=== PATIENT | male | born 1960 | race Caucasian/White ===

== ENCOUNTER 2021-07-30 09:26 | Outpatient (REF) | payer OTHER, SELFPAY ==
[2021-07-30 10:17] LABS: Hematocrit 43.3 % (42.0-52.0); Hemoglobin 14.3 g/dl (14.0-18.0); Mean Corpuscular Volume 93.9 fL (80.0-98.0); Mean Platelet Volume 11.8 fL (9.4-12.4); Platelet Count 207 X10*3/uL (160-400); Red Blood Count 4.61 X10*6/uL (4.60-5.80); Red Cell Distribution Width 12.8 % (11.0-16.0); White Blood Count 4.4 X10*3/uL (4.8-10.8)
[2021-07-30 11:05] LABS: Alanine Aminotransferase 28 U/L (0-40); Albumin Level 4.3 g/dL (3.5-5.0); Alkaline Phosphatase 75 U/L (39-117); Anion Gap 11 (12-20); Aspartate Amino Transferase 22 U/L (5-37); Bilirubin Total 0.6 mg/dL (0.0-1.0); Blood Urea Nitrogen 21 mg/dL (9-16); Calcium 9.7 mg/dL (8.4-10.2); Carbon Dioxide 28 mmol/L (22-29); Chloride 108 mmol/L (96-108); Cholesterol 185 mg/dL; Estimated Glomerular Filt Rate > 60; Glucose Fasting 108 mg/dL (60-99); HDL Cholesterol 40 mg/dL; LDL Cholesterol Calculated 131 mg/dl; Potassium 4.8 mmol/L (3.3-5.1); Sodium 142 mmol/L (135-145); Triglycerides 71 mg/dL
[2021-07-30 11:12] LABS: TSH reflex Free T4 0.51 uIU/mL (0.32-4.0)
[2021-07-30 11:50] LABS: Prostate Specific Antigen Scr 6.04 ng/mL (<0.05-4.0)
== END 2021-07-30 09:27 | disposition home or self-care (01) ==
LOC: HO.LAB 09:26
PROVIDERS: PCP Physician Assistant; Visit Provider Physician Assistant
DX: Z12.5 Encounter for screening for malignant neoplasm of prostate (principal); Z13.1 Encounter for screening for diabetes mellitus; E78.2 Mixed hyperlipidemia; I10 Essential (primary) hypertension
CPT/HCPCS: 36415; 80053; 80061; 84153; 84443; 85027

== ENCOUNTER 2021-08-27 08:03 | Outpatient (REF) | payer OTHER, SELFPAY ==
--- NOTE | ~2021-08-27 | XR_ITS ---
EXAMINATION: XR HIP, LEFT CLINICAL INFORMATION: Left hip pain COMPARISON: None TECHNIQUE: Pelvis 2 views. Left hip 2 views. FINDINGS: Left total hip arthroplasty present. Usual position and alignment. No acute periprosthetic fracture seen. No suspicious morenita-hardware lucencies to suggest hardware failure. Right total hip arthroplasty appears intact. No evidence of hardware failure. Degeneration of the lumbar spine. No acute pelvic fractures. Surgical clips projected over the scrotum. XR/XR hip LT w PEL1V IMPRESSION: Left total hip arthroplasty. No radiographic evidence of acute periprosthetic fracture or hardware failure. Right hip arthroplasty. No acute findings or evidence of hardware failure.
== END 2021-08-27 08:04 | disposition home or self-care (01) ==
LOC: HO.HOSX 08:03
PROVIDERS: Visit Provider Physician Assistant
DX: G89.29 Other chronic pain (principal); M25.552 Pain in left hip; Z98.890 Other specified postprocedural states
CPT/HCPCS: 73502

== ENCOUNTER → 2021-09-17 09:18 | Outpatient (BNVA) | payer OTHER, SELFPAY | PROVIDERS: PCP Physician Assistant; Visit Provider Internal Medicine | DX: G57.92 Unspecified mononeuropathy of left lower limb (principal); Z79.899 Other long term (current) drug therapy; Z96.643 Presence of artificial hip joint, bilateral; Z96.653 Presence of artificial knee joint, bilateral; Z87.891 Personal history of nicotine dependence | CPT/HCPCS: 99202 ==

== ENCOUNTER 2021-11-07 05:55 | Outpatient (REF) | payer OTHER, SELFPAY | END 2021-11-07 05:56 | disposition home or self-care (01) | LOC: HO.RADIR 05:55 | PROVIDERS: Visit Provider Internal Medicine | DX: G57.92 Unspecified mononeuropathy of left lower limb (principal) | CPT/HCPCS: 64425; J2795 ==

== ENCOUNTER 2023-11-05 10:12 | Outpatient (AMB) | payer OTHER, SELFPAY ==
--- NOTE | 2023-11-05 10:20 | MHC.PC.OV ---
Vital Signs 11/05/23 10:26 11/05/23 10:54 Height 5 ft 11 in Weight 238 lb BMI 33.2 BP 166/86 H 155/80 H Blood Pressure Location Lt brachial Position Sitting Pulse 75 Pulse Source Pulse Oximeter Pulse Oximetry (%) 95 Oxygen Delivery Method Room Air Intake Visit Reasons: PE/Pre-Op right knee Dr. Dugan at [facility] Intake Note: Patient is here today for a physical and Pre-Op clearance for the right knee surgery scheduled with Dr. Dugan at [facility]. Client Relations Associate Required: No Accompanied by: Self / Same As Patient Allergies No Known Allergies Allergy (Verified 11/05/23 10:37) Medication List - Last Reconciled 11/05/23 by Ayden Reid PA-C celecoxib 200 mg PO BID 90 days gabapentin 800 mg PO Q12H glucosamine HCl 500 mg PO DAILY omega-3 fatty acids (Fish Oil Concentrate) 1,000 mg PO BID omeprazole 20 mg PO DAILY pravastatin 10 mg PO DAILY Tobacco use date assessed: 11/05/23 Dental Screening Dental Screen Date: 11/05/23 Did you have a dental visit in the last 12 months?: No Did you have a dental problem in the last 6 months where you did not have access to dental care?: No Was dental information given to patient?: Patient has dentist HPI PE/Pre-Op right knee Dr. Dugan at [facility] HPI Details Patient is a 61-year-old male here today for a routine annual physical and preop visit. Patient's past medical history significant for prostate cancer( status post total prostatectomy), hypertension, osteoarthritis bilateral hips, hyperlipidemia and obesity. Unfortunately did have a work-related injury due to a fall fracturing his right patella. Patient is due for right knee cap surgery with Dr. Dugan. Patient has no past medical history significant for Congestive heart failure, mi or CVA. Patient not on any anticoagulation or antiplatelet therapy at this time. Has gotten a preop to [facility] reports labs and EKG were stable. Hypertension: Blood pressure remains elevated today in office, he reports he has been under lot of stress at work. He does at time check his blood pressure at home reports normal readings. He otherwise denies any chest discomfort, shortness of breath, dizziness or headaches. He is not interested in starting blood pressure medication at this time and will continue to monitor blood pressure at home and will call back if blood pressures remain above 140/90 .. Hyperlipidemia: Has not gotten labs in quite some time, continues on daily use of pravastatin 10 mg. Advised to do fasting lipids to evaluate total cholesterol and LDL. Colon cancer screening: last colon done done 2018- Dr meyer - negative- repeat 10 years Vaccines: Up-to-date with tetanus vaccine, pneumonia vaccine, COVID vaccines, Considering Shingles vaccine. [facility] Medical History Ilioinguinal neuralgia of left side Osteoarthritis, hip, bilateral Surgical History History of cholecystectomy History of prostate surgery History of hip surgery Hx of right knee surgery History of ankle fusion History of knee replacement procedure of right knee History of arthroscopy of right knee Deficient knowledge of leg surgery Family History Father Advanced cardiac disease Mother Bone cancer Sister Breast cancer Multiple sclerosis Son In good health Daughter In good health Social History Housing: House Alcohol intake: current Alcohol intake frequency: a few times a month Alcohol type: beer Patient Tobacco Use Status: Former Tobacco user Quit Date: 2017 Tobacco use type: Cigarette e-Cigarette/Vaping Use: Never Used Second Hand Smoke Exposure: No service: No Current occupational status: employed Current occupational exposures/hazards: No Cognitive needs: No Hearing needs: No Vision needs: Yes Questionnaire PHQ-9 Over the last 2 weeks, how often have you been bothered by any of the following problems? 1. Little interest or pleasure in doing things: not at all 2. Feeling down, depressed, or hopeless: not at all 3. Trouble falling or staying asleep, or sleeping too much: not at all 4. Feeling tired or having little energy: not at all 5. Poor appetite or overeating: not at all 6. Feeling bad about yourself - or that you are a failure or have let yourself or your family down: not at all 7. Trouble concentrating on things, such as reading the newspaper or watching television: not at all 8. Moving or speaking so slowly that other people could have noticed. Or the opposite - being so fidgety or restless that you have been moving around a lot more than usual: not at all 9. Thoughts that you would be better off or of hurting yourself in some way: not at all Total score: 0 Depression Screening Interpretation: Negative Depression Screening Done: Yes 87522 - PHQ-9 Billing: Yes Source: Developed by Drs. Albert Jamison, Fernanda Silveira, Reese Hall and colleagues, with an educational sean from [employer]. Thrive Questionnaire Date Thrive assessed: 11/05/23 I am a: Patient What is your living situation today?: I have a steady place to live Within the past 12 months, did the food you bought not last and you didn't have the money to get more?: Never true Within the past 12 months, did you worry whether your food would run out before you got money to buy more?: Never true Do you have trouble paying for medicines?: No Do you have trouble getting transportation to medical appointments?: No Do you have trouble paying your heating and electricity bill?: No Do you have trouble taking care of your child, family member or friend?: No Do you have trouble with day-to-day activities such as bathing, preparing meals, shopping, managing finances, etc.?: No Are you currently unemployed and looking for a job?: No Are you interested in more education?: No Please select the resources that you would like help with: None Currently or been in a relationship where the following occur: no concerns reported THRIVE Score: 0 AUDIT C Alcohol Use Questionnaire (AUDIT-C) 1. How often do you have a drink containing alcohol?: Monthly or less 2. How many drinks containing alcohol do you have on a typical day when you are drinking?: 1 or 2 3. How often do you have six or more drinks on one occasion?: Never Total Score: 1 ROOSEVELT-7 AMB Questionnaire ROOSEVELT-7 Date ROOSEVELT - 7 assessed: 11/05/23 Feeling nervous, anxious, or on edge: 0 = Not at all Not being able to stop or control worryin = Not at all Worrying too much about different things: 0 = Not at all Trouble relaxin = Not at all Being so restless that it is hard to sit still: 0 = Not at all Becoming easily annoyed or irritable: 0 = Not at all Feeling afraid as if something awful might happen: 0 = Not at all Total ROOSEVELT-7 score (0-4 normal; 5-9 mild; 10-14 moderate; 15-21 severe): 0 Source: Developed by Drs. Albert Jamison, Fernanda Silveira, Reese Hall and colleagues, with an educational sean from [employer]. ROOSEVELT-7 Assessment Billing ROOSEVELT-7 Assessment Tool: ROOSEVELT-7 Assessment 58517 Review of Systems Const Denies body aches, Denies chills, Denies excessive sweating, Denies fatigue, Denies fever(s) and Denies headache(s) Eyes Denies blurry vision ENT Denies dysphagia, Denies vertigo, Denies dizziness, Denies headache(s), Denies hearing loss and Denies tinnitus Card Denies chest pain, Denies chest pain with activity, Denies syncope, Denies irregular heart rhythm and Denies dyspnea Resp Denies chest congestion, Denies cough, Denies hemoptysis, Denies dyspnea and Denies wheezing GI Denies abdominal pain, Denies melena, Denies hematochezia, Denies coffee ground emesis, Denies dysphagia, Denies diarrhea, Denies nausea and Denies vomiting Denies difficulty urinating, Denies dysuria, Denies urinary frequency, Denies urinary hesitancy and Denies urinary urgency Musc Denies arthralgias, Denies limited range of motion, Denies muscle cramps and Denies muscle weakness Skin/Breast Denies rash and Denies skin ulcer Neuro Denies Abnormal speech present, Denies confusion, Denies vertigo, Denies dizziness, Denies syncope, Denies headache(s), Denies memory loss and Denies seizure-like activity Psych Denies anxiety, Denies confusion, Denies depression, Denies memory loss, Denies panic attacks and Denies paranoia Endo Denies excessive sweating, Denies fatigue, Denies flushing, Denies polydipsia and Denies polyuria Aller/Immun Denies wheezing Physical exam (Primary Care) Vital Signs: Last Vital Signs Pulse 75 11/05/23 10:26 BP 166/86 H 11/05/23 10:26 Pulse Ox 95 11/05/23 10:26 Oxygen Delivery Method Room Air 11/05/23 10:26 BMI result Body Mass Index 33.2 Tobacco/Smoking Status: Tobacco use Status Tobacco use date assessed 11/05/23 11/05/23 10:31 Patient Tobacco Use Status Former Tobacco user 11/05/23 10:22 Tobacco use type Cigarette 11/05/23 10:22 e-Cigarette/Vaping Use Never Used 11/05/23 10:22 PHQ-9: PHQ-9 Score PHQ-9: Total score 0 11/05/23 10:31 Depression Screening Interpretation: Negative Thrive Assessment: Date of Thrive Assessment Date Thrive assessed 11/05/23 11/05/23 10:31 Currently or been in a relationship where the following occur: no concerns reported Const General: cooperative, comfortable, no acute distress, alert and awake; No confusion Orientation/consciousness: oriented to person, oriented to place, patient oriented x3 and No confusion HENMT Head: Yes normocephalic Ears: external ears normal and TM's normal bilaterally Face and sinus: No sinus tenderness Mouth: Normal oral and palatal mucosa present and tongue normal Teeth and gingiva: dentition normal and gingiva normal Throat: Yes posterior oropharynx normal, Yes tonsils normal and Yes uvula midline Eyes Conjunctivae: conjunctivae normal Sclerae: sclerae normal Pupils: Equal, round and reactive pupils present EOM: EOMs intact bilaterally Direct Ophthalmoscopy: No no photophobia Neck Neck: Yes no lymphadenopathy, No tender and Yes no JVD Thyroid: Thyroid normal Carotids: no bruits Chest Chest palpation & inspection: no tenderness Resp Effort & Inspection: normal respiratory effort, no audible wheezes, not labored and no stridor Auscultation: no crackles, no rales, no rhonchi and no wheezes Cardio Jugular venous distension: no JVD Rate: regular rate, not bradycardic and not tachycardic Rhythm: regular rhythm Bruits: no carotid bruits Peripheral pulses: Peripheral pulses 2+ throughout GI Inspection: Yes normal to inspection, No abdominal wall ecchymosis and No visible herniation Palpation (GI): Soft to palpation, nontender, no guarding, not rigid and No hepatosplenomegaly present Auscultation: normoactive bowel sounds General: Yes no CVA tenderness Back/Spine/Pelvis Back: no CVA tenderness and No back tenderness Cervical Spine: cervical ROM normal Thoracic/Lumbar Spine: thoracic and lumbar spine normal to inspection, straight leg raise negative bilaterally, No thoraco-lumbar ROM limited and No lumbar spinal tenderness Skin Lesions: no lesions Rashes: no rashes Wounds: no wounds Neuro General: oriented to person, oriented to place, patient oriented x3, CN's II-XI intact bilaterally and No confusion Cranial nerves: Yes Equal, round and reactive pupils present and Yes Normal accommodation reflex present Cognition (Neuro): normal cognition Speech: No Abnormal speech present Gait exam (Neuro): Normal gait present Motor exam (neuro): 5/5 motor strength present throughout Extrem Right upper extremity: full ROM; no cyanosis Left upper extremity: full ROM; no cyanosis Right lower extremity: no edema Left lower extremity: no edema Psych Appearance: grossly normal Mental Status: mental status grossly normal Affect: normal affect Attitude: cooperative Thought process: Normal thought process present Assessment and Plan Assessment & Plan (1) Annual physical exam: Code(s): Z00.00 - Encounter for general adult medical examination without abnormal findings (2) HLD (hyperlipidemia): Code(s): E78.5 - Hyperlipidemia, unspecified Qualifiers: Hyperlipidemia type: mixed hyperlipidemia Qualified Code(s): E78.2 - Mixed hyperlipidemia Plan: Patient continues on statin therapy without side effect. He has not gotten labs in quite some time and promises to do fasting labs to evaluate total cholesterol and LDL. Goal LDL to be below 130 (3) High blood pressure: Code(s): I10 - Essential (primary) hypertension Qualifiers: Hypertension type: primary hypertension Qualified Code(s): I10 - Essential (primary) hypertension Plan: Blood pressure noted to be elevated today in office, he attributes this to being somewhat stressed out due to being worker's comp due to recent knee injury. He is due for surgery. Has been a lot of pain as well.. He will continue to monitor at home. I advised on starting blood pressure medication though patient declines and would like to work on lifestyle modifications to reduce his blood pressure. Goal blood pressure to be below 140/90 (4) Obese: Code(s): E66.9 - Obesity, unspecified Qualifiers: Obesity type: due to excess calories Obesity classification: adult class 1 (BMI 30 - 34.9) Serious obesity comorbidity presence: without serious comorbidity Body mass index: BMI 32.0-32.9 Qualified Code(s): E66.09 - Other obesity due to excess calories; Z68.32 - Body mass index [BMI] 32.0-32.9, adult Plan: Patient does understand his BMI is over 30 will work on being more physically active and adapting to better eating habits to reduce his weight (5) Right patella fracture: Code(s): S82.001A - Unspecified fracture of right patella, initial encounter for closed fracture Qualifiers: Encounter type: sequela Fracture type: closed Fracture morphology: unspecified fracture morphology Fracture alignment: displaced Qualified Code(s): S82.001S - Unspecified fracture of right patella, sequela Plan: As above patient is due for right patellar surgery. (6) Stress incontinence, male: Code(s): N39.3 - Stress incontinence (female) (male) Plan: Having stress incontinence ever since his prostatectomy surgery. He is interested in pelvic floor therapy. (7) Prostate cancer: Code(s): C61 - Malignant neoplasm of prostate Plan: Is status post prostatectomy. Cancer seems to be in remission. Continues to follow urology. PSAs are followed. He has unfortunately been dealing with stress incontinence in his interested in pelvic floor therapy. Orders: Orders PT Evaluation and Treatment Today N39.3 - Stress incontinence (female) (male) Lipid Panel Today E78.2 - Mixed hyperlipidemia Complete Blood Count no Diff Today E78.2 - Mixed hyperlipidemia Comprehensive Gardner. Panel Fast Today E78.2 - Mixed hyperlipidemia Microalbumin, Random (w Creat) Today R03.0 - Elevated blood-pressure reading, without diagnosis of hypertension Patient Instructions: Goal: Monitor blood pressure, blood pressures remain below 140/90 Barriers: Adherence do physical activity and healthy eating habits. Coding Level of Care Code Est Pt Prev Care 40-64y(70681) Diagnoses Annual physical exam Z00.00 Mixed hyperlipidemia E78.2 Hyperlipidemia type: mixed hyperlipidemia Primary hypertension I10 Hypertension type: primary hypertension Class 1 obesity due to excess calories without serious comorbidity with body mass index (BMI) of 32.0 to 32.9 in adult E66.09; Z68.32 Obesity type: due to excess calories Obesity classification: adult class 1 (BMI 30 - 34.9) Serious obesity comorbidity presence: without serious comorbidity Body mass index: BMI 32.0-32.9 Closed displaced fracture of right patella, unspecified fracture morphology, sequela S82.001S Encounter type: sequela Fracture type: closed Fracture morphology: unspecified fracture morphology Fracture alignment: displaced Stress incontinence, male N39.3 Prostate cancer C61 Additional Codes ROOSEVELT-7 Assessment Billing - ROOSEVELT-7 Assessment Tool: ROOSEVELT-7 Assessment 11751 ([id number])
[2023-11-05 10:26] VITALS: BP 166/86; PULSE 75; O2SAT 95; BMI 33.2
[2023-11-05 10:54] VITALS: BP 155/80
== END 2023-11-05 11:01 | disposition home or self-care (01) ==
PROVIDERS: PCP Physician Assistant; Visit Provider Physician Assistant
DX: Z00.00 Encounter for general adult medical examination without abnormal findings (principal); C61 Malignant neoplasm of prostate; E66.09 Other obesity due to excess calories; Z68.32 Body mass index [BMI] 32.0-32.9, adult; E78.2 Mixed hyperlipidemia; I10 Essential (primary) hypertension; S82.001S Unspecified fracture of right patella, sequela; N39.3 Stress incontinence (female) (male)
CPT/HCPCS: 99396

== ENCOUNTER 2024-02-05 09:36 | Outpatient (AMB) | payer OTHER, SELFPAY ==
--- NOTE | 2024-02-05 09:47 | MHC.PC.OV ---
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 Accompanied by: Self / Same As Patient Allergies No Known Allergies Allergy (Verified 02/05/24 10:21) Medication List - Last Reconciled 02/05/24 by Ayden Reid PA-C celecoxib 200 mg PO BID 90 days gabapentin 800 mg PO Q12H glucosamine HCl 500 mg PO DAILY omega-3 fatty acids (Fish Oil Concentrate) 1,000 mg PO BID omeprazole 20 mg PO DAILY pravastatin 10 mg PO DAILY Tobacco use date assessed: 11/05/23 Fall risk assessment: No Falls in past year Last assessed Fall Risk: 02/05/24 Dental Screening Dental Screen Date: 11/05/23 HPI f/u HTN HPI Details Patient is a 63-year-old male here today for a follow-up. Patient's past medical history significant for prostate cancer( status post total prostatectomy), hypertension, osteoarthritis bilateral hips, hyperlipidemia and obesity. Hypertension: Blood pressure remains elevated today in office, he reports he has been under lot of stress and continues to be in pain due to his knee issue.. He does at time check his blood pressure at home reports normal readings. He otherwise denies any chest discomfort, shortness of breath, dizziness or headaches. He is not interested in starting blood pressure medication at this time and will continue to monitor blood pressure at home and will call back if blood pressures remain above 140/90 .. Hyperlipidemia: Has not gotten labs in quite some time, continues on daily use of pravastatin 10 mg. Advised to do fasting lipids to evaluate total cholesterol and LDL. [facility] Medical History Ilioinguinal neuralgia of left side Osteoarthritis, hip, bilateral Surgical History History of cholecystectomy History of prostate surgery History of hip surgery Hx of right knee surgery History of ankle fusion History of knee replacement procedure of right knee History of arthroscopy of right knee Deficient knowledge of leg surgery Family History Father Advanced cardiac disease Mother Bone cancer Sister Breast cancer Multiple sclerosis Son In good health Daughter In good health Social History Housing: House Alcohol intake: current Alcohol intake frequency: a few times a month Alcohol type: beer Patient Tobacco Use Status: Former Tobacco user Tobacco use type: Cigarette e-Cigarette/Vaping Use: Never Used Second Hand Smoke Exposure: No service: No Current occupational status: employed Current occupational exposures/hazards: No Cognitive needs: No Hearing needs: No Vision needs: Yes Questionnaire Thrive Questionnaire Date Thrive assessed: 11/05/23 ROOSEVELT-7 AMB Questionnaire ROOSEVELT-7 Date ROOSEVELT - 7 assessed: 11/05/23 Source: Developed by Drs. Albert Jamison, Fernanda Silveira, Reese Hall and colleagues, with an educational sean from [employer]. Review of Systems Const Denies headache(s) Eyes Denies loss of vision ENT Denies vertigo, Denies dizziness, Denies headache(s) and Denies sore throat Card Denies chest pain, Denies leg edema and Denies lightheadedness Resp Denies cough, Denies hemoptysis and Denies wheezing GI Denies abdominal pain, Denies melena, Denies constipation, Denies diarrhea and Denies vomiting Denies dysuria, Denies urinary frequency and Denies urinary urgency Musc Denies arthralgias, Denies joint swelling, Denies numbness and Denies tingling Neuro Denies Abnormal speech present, Denies behavioral changes, Denies vertigo, Denies dizziness, Denies headache(s), Denies loss of vision, Denies memory loss, Denies numbness and Denies tingling Psych Denies anxiety, Denies behavioral changes, Denies depression, Denies memory loss and Denies panic attacks John/Lymph Denies easy bleeding and Denies easy bruising Aller/Immun Denies wheezing Physical exam (Primary Care) Vital Signs: Last Vital Signs Pulse 80 02/05/24 09:50 BP 182/100 H 02/05/24 09:50 Pulse Ox 95 02/05/24 09:50 Oxygen Delivery Method Room Air 02/05/24 09:50 BMI result Body Mass Index 33.2 Tobacco/Smoking Status: Tobacco use Status Tobacco use date assessed 11/05/23 02/05/24 09:48 Patient Tobacco Use Status Former Tobacco user 02/05/24 09:48 Tobacco use type Cigarette 02/05/24 09:48 e-Cigarette/Vaping Use Never Used 02/05/24 09:48 Thrive Assessment: Date of Thrive Assessment Date Thrive assessed 11/05/23 02/05/24 09:48 Const General: healthy appearing, no acute distress, alert and awake Nutritional Appearance: well nourished Orientation/consciousness: oriented to person, oriented to place and oriented to time HENMT Ears: TM's normal bilaterally General nose exam: Normal nasal mucous membranes and turbinates present Eyes Conjunctivae: conjunctivae normal Sclerae: sclerae normal Pupils: Equal, round and reactive pupils present Neck Neck: Yes no lymphadenopathy and Yes no JVD Thyroid: Thyroid normal Carotids: no bruits Resp Effort & Inspection: normal respiratory effort and not tachypneic Auscultation: no crackles, no rales, no rhonchi and no wheezes Cardio Rate: regular rate Rhythm: regular rhythm Heart sounds: no murmurs and normal S1 and S2 GI Palpation (GI): Soft to palpation, nontender, no hepatomegaly and no splenomegaly Auscultation: normal bowel sounds Skin General skin exam: no rashes or lesions noted and dry skin Neuro General: oriented to person, oriented to place and oriented to time Cranial nerves: Yes Equal, round and reactive pupils present Speech: No Abnormal speech present Gait exam (Neuro): Normal gait present Motor exam (neuro): no tremor noted Extrem Right upper extremity: full ROM Left upper extremity: full ROM Right lower extremity: full ROM; no edema Left lower extremity: full ROM; no edema Psych Mental Status: mental status grossly normal Speech and movement: Normal speech and movement present Affect: normal affect Attitude: cooperative Thought process: Normal thought process present Assessment and Plan Assessment & Plan (1) HLD (hyperlipidemia): Code(s): E78.5 - Hyperlipidemia, unspecified Qualifiers: Hyperlipidemia type: mixed hyperlipidemia Qualified Code(s): E78.2 - Mixed hyperlipidemia Plan: Patient continues on statin therapy without side effect. He has not gotten labs in quite some time and promises to do fasting labs to evaluate total cholesterol and LDL. Goal LDL to be below 130 (2) High blood pressure: Code(s): I10 - Essential (primary) hypertension Qualifiers: Hypertension type: primary hypertension Qualified Code(s): I10 - Essential (primary) hypertension Plan: Blood pressure noted to be elevated today in office, he attributes this to being somewhat stressed out due to being worker's comp due to recent knee injury. He has underwent surgery for his knee cap fracture.. Has been a lot of pain as well.. He will continue to monitor at home. I advised on starting blood pressure medication though patient declines and would like to work on lifestyle modifications to reduce his blood pressure. Goal blood pressure to be below 140/90 (3) Obese: Code(s): E66.9 - Obesity, unspecified Qualifiers: Body mass index: BMI 32.0-32.9 Obesity classification: adult class 1 (BMI 30 - 34.9) Obesity type: due to excess calories Serious obesity comorbidity presence: without serious comorbidity Qualified Code(s): E66.09 - Other obesity due to excess calories; Z68.32 - Body mass index [BMI] 32.0-32.9, adult Plan: Patient does understand his BMI is over 30 will work on being more physically active and adapting to better eating habits to reduce his weight (4) Right patella fracture: Code(s): S82.001A - Unspecified fracture of right patella, initial encounter for closed fracture Qualifiers: Encounter type: sequela Fracture alignment: displaced Fracture morphology: unspecified fracture morphology Fracture type: closed Qualified Code(s): S82.001S - Unspecified fracture of right patella, sequela Plan: He is status post right patellar surgery. Now in physical therapy. Still has some pretty significant pain. Will supply patient with short term low-dose script of oxycodone for pain control particularly before PT sessions. (5) Stress incontinence, male: Code(s): N39.3 - Stress incontinence (female) (male) Plan: Having stress incontinence ever since his prostatectomy surgery due to prostate cancer. Has followed up with Urology and will be considering bladder sling surgery to help with urinary incontinence. Medications: New oxycodone-acetaminophen 5-325 mg (Percocet) Partial Fill upon patient request. 1 tab PO BID PRN 14 tabs 0RF pain 7 days S82.001S - Unspecified fracture of right patella, sequela Refilled celecoxib 200 mg PO BID 180 caps 1RF 90 days M16.0 - Bilateral primary osteoarthritis of hip gabapentin 800 mg PO Q12H 180 tabs 1RF omeprazole 20 mg PO DAILY 90 caps 1RF pravastatin 10 mg PO DAILY 90 tabs 1RF Patient Instructions: Goal: Blood pressure to be below 140/90 Barrier: Pain control, adherence to physical activity and healthy eating habits Coding Level of Care Code Est Pt Level 4 (20882) Diagnoses Mixed hyperlipidemia E78.2 Hyperlipidemia type: mixed hyperlipidemia Primary hypertension I10 Hypertension type: primary hypertension Class 1 obesity due to excess calories without serious comorbidity with body mass index (BMI) of 32.0 to 32.9 in adult E66.09; Z68.32 Body mass index: BMI 32.0-32.9 Obesity classification: adult class 1 (BMI 30 - 34.9) Obesity type: due to excess calories Serious obesity comorbidity presence: without serious comorbidity Closed displaced fracture of right patella, unspecified fracture morphology, sequela S82.001S Encounter type: sequela Fracture alignment: displaced Fracture morphology: unspecified fracture morphology Fracture type: closed Stress incontinence, male N39.3
[2024-02-05 09:50] VITALS: BP 182/100; PULSE 80; O2SAT 95; BMI 33.2
== END 2024-02-05 10:51 | disposition home or self-care (01) ==
PROVIDERS: PCP Physician Assistant; Visit Provider Physician Assistant
DX: E78.2 Mixed hyperlipidemia (principal); I10 Essential (primary) hypertension; E66.09 Other obesity due to excess calories; Z68.32 Body mass index [BMI] 32.0-32.9, adult; S82.001S Unspecified fracture of right patella, sequela; N39.3 Stress incontinence (female) (male)
CPT/HCPCS: 99214

== ENCOUNTER 2024-05-10 09:48 | Outpatient (AMB) | payer OTHER, SELFPAY ==
[2024-05-10 10:01] VITALS: BP 156/100; PULSE 73; O2SAT 93; BMI 33.5
--- NOTE | 2024-05-10 10:01 | A.OFFPC_ITS ---
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 Accompanied by: Self / Same As Patient Allergies No Known Allergies Allergy (Verified 05/10/24 10:23) Medication List - Last Reconciled 05/10/24 by Ayden Reid PA-C celecoxib 200 mg PO BID 90 days gabapentin 800 mg PO Q12H glucosamine HCl 500 mg PO DAILY omega-3 fatty acids (Fish Oil Concentrate) 1,000 mg PO BID omeprazole 20 mg PO DAILY oxycodone-acetaminophen 5-325 mg (Percocet) 1 tab PO BID PRN 7 days pravastatin 10 mg PO DAILY Tobacco use date assessed: 11/05/23 Fall risk assessment: No Falls in past year Last assessed Fall Risk: 05/10/24 Dental Screening Dental Screen Date: 11/05/23 HPI f/u HTN- pain management 2 HPI0 Details Patient is a 63-year-old male here today for a follow-up. Patient's past medical history significant for prostate cancer( status post total prostatectomy), hypertension, osteoarthritis bilateral hips, hyperlipidemia and obesity. CONTINUES TO BE ON WORKER'S COMP DUE TO HIS RIGHT KNEE ISSUE. UNFORTUNATELY HAS BEEN LET GO FROM HIS JOB AND HAS HAVING A LOT OF ANXIETY ABOUT THIS. NOT INTERESTED IN MENTAL HEALTH THERAPY OR ANXIETY MEDICATION AT THIS TIME THOUGH WILL KEEP IT IN MIND. Right knee patellar fracture: Continues to follow orthopedics in [place]. He is wearing a knee brace at this time. Continues with physical therapy. Does use oxycodone 5 mg as needed for pain scales 8-10. Otherwise continues with Celebrex Hypertension: Blood pressure remains elevated today in office, he reports he has been under lot of stress and continues to be in pain due to his knee issue.. He does at time check his blood pressure at home reports higher readings as well. He otherwise denies any chest discomfort, shortness of breath, dizziness or headaches. PLAN: Will start lisinopril 5 mg and will continue to monitor blood pressure with goal blood pressure to be below 140/90 .. Hyperlipidemia: Has not gotten labs in quite some time, continues on daily use of pravastatin 10 mg. Advised to do fasting lipids to evaluate total cholesterol and LDL .. [facility] Medical History Ilioinguinal neuralgia of left side Osteoarthritis, hip, bilateral Surgical History History of cholecystectomy History of prostate surgery History of hip surgery Hx of right knee surgery History of ankle fusion History of knee replacement procedure of right knee History of arthroscopy of right knee Deficient knowledge of leg surgery Family History Father Advanced cardiac disease Mother Bone cancer Sister Breast cancer Multiple sclerosis Son In good health Daughter In good health Social History Housing: House Alcohol intake: current Alcohol intake frequency: a few times a month Alcohol type: beer Patient Tobacco Use Status: Former Tobacco user Tobacco use type: Cigarette e-Cigarette/Vaping Use: Never Used Second Hand Smoke Exposure: No service: No Current occupational status: employed Current occupational exposures/hazards: No Cognitive needs: No Hearing needs: No Vision needs: Yes Questionnaire Thrive Questionnaire Date Thrive assessed: 11/05/23 ROOSEVELT-7 AMB Questionnaire ROOSEVELT-7 Date ROOSEVELT - 7 assessed: 11/05/23 Source: Developed by Drs. Albert Jamison, Fernanda Silveira, Reese Hall and colleagues, with an educational sean from [employer]. Review of Systems Const Denies headache(s) Eyes Denies loss of vision ENT Denies vertigo, Denies dizziness, Denies headache(s) and Denies sore throat Card Denies chest pain, Denies leg edema and Denies lightheadedness Resp Denies cough, Denies hemoptysis and Denies wheezing GI Denies abdominal pain, Denies melena, Denies constipation, Denies diarrhea and Denies vomiting Denies dysuria, Denies urinary frequency and Denies urinary urgency Musc Denies arthralgias, Denies joint swelling, Denies numbness and Denies tingling Neuro Denies Abnormal speech present, Denies behavioral changes, Denies vertigo, Denies dizziness, Denies headache(s), Denies loss of vision, Denies memory loss, Denies numbness and Denies tingling Psych Denies anxiety, Denies behavioral changes, Denies depression, Denies memory loss and Denies panic attacks John/Lymph Denies easy bleeding and Denies easy bruising Aller/Immun Denies wheezing Physical exam (Primary Care) Vital Signs: Last Vital Signs Pulse 73 05/10/24 10:01 BP 156/100 H 05/10/24 10:01 Pulse Ox 93 05/10/24 10:01 Oxygen Delivery Method Room Air 05/10/24 10:01 BMI result Body Mass Index 33.5 Tobacco/Smoking Status: Tobacco use Status Tobacco use date assessed 11/05/23 05/10/24 10:01 Patient Tobacco Use Status Former Tobacco user 05/10/24 10:01 Tobacco use type Cigarette 05/10/24 10:01 e-Cigarette/Vaping Use Never Used 05/10/24 10:01 Thrive Assessment: Date of Thrive Assessment Date Thrive assessed 11/05/23 05/10/24 10:01 Const General: healthy appearing, no acute distress, alert and awake Nutritional Appearance: well nourished Orientation/consciousness: oriented to person, oriented to place and oriented to time HENMT Ears: TM's normal bilaterally General nose exam: Normal nasal mucous membranes and turbinates present Eyes Conjunctivae: conjunctivae normal Sclerae: sclerae normal Pupils: Equal, round and reactive pupils present Neck Neck: Yes no lymphadenopathy and Yes no JVD Thyroid: Thyroid normal Carotids: no bruits Resp Effort & Inspection: normal respiratory effort and not tachypneic Auscultation: no crackles, no rales, no rhonchi and no wheezes Cardio Rate: regular rate Rhythm: regular rhythm Heart sounds: no murmurs and normal S1 and S2 GI Palpation (GI): Soft to palpation, nontender, no hepatomegaly and no splenomegaly Auscultation: normal bowel sounds Skin General skin exam: no rashes or lesions noted and dry skin Neuro General: oriented to person, oriented to place and oriented to time Cranial nerves: Yes Equal, round and reactive pupils present Speech: No Abnormal speech present Gait exam (Neuro): Normal gait present Motor exam (neuro): no tremor noted Extrem Right upper extremity: full ROM Left upper extremity: full ROM Right lower extremity: full ROM; no edema Left lower extremity: full ROM; no edema Knee images: 2 1. WEARING SUPPORTIVE BRACE Psych Mental Status: mental status grossly normal Speech and movement: Normal speech and movement present Affect: normal affect Attitude: cooperative Thought process: Normal thought process present Office Procedures Flu Questionnaire Does the patient have a severe egg allergy?: No Immunizations Fluarix Triv [id number] (PF) 45 mcg (15 mcg x 3)/0.5 mL IM syringe Performing Provider: Ayden Reid PA-C [place] [facility] [place] [facility] Documented (not given) by: YANET Monreal on 05/10/24 10:15 Reason Not Given: Patient Refused Coding Level of Care Code Est Pt Level 4 (87619) Diagnoses Primary hypertension I10 Hypertension type: primary hypertension Prostate cancer C61 Closed displaced fracture of right patella, unspecified fracture morphology, sequela S82.001S Encounter type: sequela Fracture alignment: displaced Fracture morphology: unspecified fracture morphology Fracture type: closed Assessment & Plan Assessment & Plan (1) High blood pressure: Code(s): I10 - Essential (primary) hypertension Category: Medical Qualifiers: Hypertension type: primary hypertension Qualified Code(s): I10 - Essential (primary) hypertension Plan: Patient continues to have high blood pressure. He is now willing to start blood pressure medication. Will start lisinopril 5 mg and advised to monitor blood pressure with goal blood pressure be below 140/90 (2) Prostate cancer: Code(s): C61 - Malignant neoplasm of prostate Category: Medical Plan: Patient continues to follow urology. He did have a urinary bladder sling placed in has been recovering well. He reports no urinary issues at this time. (3) Right patella fracture: Code(s): S82.001A - Unspecified fracture of right patella, initial encounter for closed fracture Category: Medical Qualifiers: Encounter type: sequela Fracture alignment: displaced Fracture morphology: unspecified fracture morphology Fracture type: closed Qualified Code(s): S82.001S - Unspecified fracture of right patella, sequela Plan: Continues to follow Orthopedics. Has been physical therapy. Does wear a right knee brace for stabilization. He still has pretty significant pain to which he uses oxycodone 5 mg on a as needed basis. Otherwise continues gabapentin and Celebrex. Orders: Orders 2 Influenza [id number] Immunization Today Z23 - Encounter for immunization Medications: New 2 lisinopril 5 mg PO DAILY 30 tabs 1RF 30 days I10 - Essential (primary) hypertension Refilled 2 oxycodone-acetaminophen 5-325 mg (Percocet) Partial Fill upon patient request. 1 tab PO BID PRN 14 tabs 0RF pain 7 days S82.001S - Unspecified fracture of right patella, sequela
== END 2024-05-10 10:36 | disposition home or self-care (01) ==
PROVIDERS: PCP Physician Assistant; Visit Provider Physician Assistant
DX: I10 Essential (primary) hypertension (principal); C61 Malignant neoplasm of prostate; S82.001S Unspecified fracture of right patella, sequela; Z23 Encounter for immunization

== ENCOUNTER → 2024-05-10 09:48 | Outpatient (BNVA) | payer OTHER, SELFPAY | PROVIDERS: PCP Physician Assistant; Visit Provider Physician Assistant | DX: I10 Essential (primary) hypertension (principal); E78.5 Hyperlipidemia, unspecified; C61 Malignant neoplasm of prostate; S82.001D Unspecified fracture of right patella, subsequent encounter for closed fracture with routine healing; Z79.899 Other long term (current) drug therapy; Z28.21 Immunization not carried out because of patient refusal | CPT/HCPCS: 90471 ==

== ENCOUNTER 2024-07-05 08:34 | Outpatient (AMB) | payer OTHER, SELFPAY ==
[2024-07-05 08:36] VITALS: BP 132/84; PULSE 70; O2SAT 95; BMI 34.0
--- NOTE | 2024-07-05 08:36 | A.OFFPC_ITS ---
Vital Signs 07/05/24 08:36 Height 5 ft 11 in Weight 244 lb BMI 34.0 BP 132/84 Blood Pressure Location Lt brachial Position Sitting Pulse 70 Pulse Source Pulse Oximeter Pulse Oximetry (%) 95 Oxygen Delivery Method Room Air Intake Visit Reasons: f/u HTN Safety Specialist Required: No Accompanied by: Self / Same As Patient Allergies No Known Allergies Allergy (Verified 07/05/24 09:08) Medication List - Last Reconciled 07/05/24 by Ayden Reid PA-C celecoxib 200 mg PO BID 90 days gabapentin 800 mg PO Q12H glucosamine HCl 500 mg PO DAILY lisinopril 5 mg PO DAILY 30 days omega-3 fatty acids (Fish Oil Concentrate) 1,000 mg PO BID omeprazole 20 mg PO DAILY oxycodone-acetaminophen 5-325 mg (Percocet) 1 tab PO BID PRN 7 days pravastatin 10 mg PO DAILY Tobacco use date assessed: 07/05/24 Fall risk assessment: 1 Fall in past year Last assessed Fall Risk: 07/05/24 Dental Screening Dental Screen Date: 07/05/24 Did you have a dental visit in the last 12 months?: No Did you have a dental problem in the last 6 months where you did not have access to dental care?: No Was dental information given to patient?: Patient has dentist HPI f/u HTN HPI Details Patient is a 63-year-old male here today for a follow-up. Patient's past medical history significant for prostate cancer( status post total prostatectomy), hypertension, osteoarthritis bilateral hips, hyperlipidemia and obesity. Right knee patellar fracture: Continues to follow orthopedics in [place]. Was found to have severe laxity in his right knee be due for full replacement of his right knee.. Does use oxycodone 5 mg as needed for pain scales 8-10. Otherwise continues with Celebrex Hypertension: Patient's blood pressure improved today in office. He has been started on lisinopril 5 mg He does at time check his blood pressure at home reports they have been stable.. He otherwise denies any chest discomfort, shortness of breath, dizziness or headaches. .. Hyperlipidemia: Has not gotten labs in quite some time, continues on daily use of pravastatin 10 mg. Advised to do fasting lipids to evaluate total cholesterol and LDL .. [facility] Medical History Ilioinguinal neuralgia of left side Osteoarthritis, hip, bilateral Surgical History History of cholecystectomy History of prostate surgery History of hip surgery Hx of right knee surgery History of ankle fusion History of knee replacement procedure of right knee History of arthroscopy of right knee Deficient knowledge of leg surgery Family History Father Advanced cardiac disease Mother Bone cancer Sister Breast cancer Multiple sclerosis Son In good health Daughter In good health Social History Housing: House Alcohol intake: current Alcohol intake frequency: a few times a month Alcohol type: beer Patient Tobacco Use Status: Former Tobacco user Tobacco use type: Cigarette e-Cigarette/Vaping Use: Never Used Second Hand Smoke Exposure: No service: No Current occupational status: employed Current occupational exposures/hazards: No Cognitive needs: No Hearing needs: No Vision needs: Yes Questionnaire PHQ-9 Over the last 2 weeks, how often have you been bothered by any of the following problems? 1. Little interest or pleasure in doing things: not at all 2. Feeling down, depressed, or hopeless: not at all 3. Trouble falling or staying asleep, or sleeping too much: not at all 4. Feeling tired or having little energy: not at all 5. Poor appetite or overeating: not at all 6. Feeling bad about yourself - or that you are a failure or have let yourself or your family down: not at all 7. Trouble concentrating on things, such as reading the newspaper or watching television: not at all 8. Moving or speaking so slowly that other people could have noticed. Or the opposite - being so fidgety or restless that you have been moving around a lot more than usual: not at all 9. Thoughts that you would be better off or of hurting yourself in some wa y: not at all Total score: 0 Depression Screening Interpretation: Negative Depression Screening Done: Yes 50401 - PHQ-9 Billing: Yes Source: Developed by Drs. Albert Jamison, Fernanda Silveira, Reese Hall and colleagues, with an educational sean from [employer]. Thrive Questionnaire Date Thrive assessed: 07/05/24 I am a: Patient What is your living situation today?: I have a steady place to live Within the past 12 months, did the food you bought not last and you didn't have the money to get more?: Never true Within the past 12 months, did you worry whether your food would run out before you got money to buy more?: Never true Do you have trouble paying for medicines?: No Do you have trouble getting transportation to medical appointments?: No Do you have trouble paying your heating and electricity bill?: No Do you have trouble taking care of your child, family member or friend?: No Do you have trouble with day-to-day activities such as bathing, preparing meals, shopping, managing finances, etc.?: No Are you currently unemployed and looking for a job?: No Are you interested in more education?: No Please select the resources that you would like help with: None Currently or been in a relationship where the following occur: No concerns reported THRIVE Score: 0 AUDIT C Alcohol Use Questionnaire (AUDIT-C) 1. How often do you have a drink containing alcohol?: Monthly or less 2. How many drinks containing alcohol do you have on a typical day when you are drinking?: 1 or 2 3. How often do you have six or more drinks on one occasion?: Never Total Score: 1 ROOSEVELT-7 AMB Questionnaire ROOSEVELT-7 Date ROOSEVELT - 7 assessed: 07/05/24 Feeling nervous, anxious, or on edge: 0 = Not at all Not being able to stop or control worryin = Not at all Worrying too much about different things: 0 = Not at all Trouble relaxin = Not at all Being so restless that it is hard to sit still: 0 = Not at all Becoming easily annoyed or irritable: 0 = Not at all Feeling afraid as if something awful might happen: 0 = Not at all Total ROOSEVELT-7 score (0-4 normal; 5-9 mild; 10-14 moderate; 15-21 severe): 0 Source: Developed by Drs. Albert Jamison, Fernanda Silveira, Reese Hall and colleagues, with an educational sean from [employer]. ROOSEVELT-7 Assessment Billing ROOSEVELT-7 Assessment Tool: ROOSEVELT-7 Assessment 10520 Review of Systems Const Denies headache(s) Eyes Denies loss of vision ENT Denies vertigo, Denies dizziness, Denies headache(s) and Denies sore throat Card Denies chest pain, Denies leg edema and Denies lightheadedness Resp Denies cough, Denies hemoptysis and Denies wheezing GI Denies abdominal pain, Denies melena, Denies constipation, Denies diarrhea and Denies vomiting Denies dysuria, Denies urinary frequency and Denies urinary urgency Musc Denies arthralgias, Denies joint swelling, Denies numbness and Denies tingling Neuro Denies Abnormal speech present, Denies behavioral changes, Denies vertigo, Denies dizziness, Denies headache(s), Denies loss of vision, Denies memory loss, Denies numbness and Denies tingling Psych Denies anxiety, Denies behavioral changes, Denies depression, Denies memory loss and Denies panic attacks John/Lymph Denies easy bleeding and Denies easy bruising Aller/Immun Denies wheezing Physical exam (Primary Care) Vital Signs: Last Vital Signs Pulse 70 07/05/24 08:36 BP 132/84 07/05/24 08:36 Pulse Ox 95 07/05/24 08:36 Oxygen Delivery Method Room Air 07/05/24 08:36 BMI result Body Mass Index 34.0 Tobacco/Smoking Status: Tobacco use Status Tobacco use date assessed 07/05/24 07/05/24 08:39 Patient Tobacco Use Status Former Tobacco user 07/05/24 08:39 Tobacco use type Cigarette 07/05/24 08:39 e-Cigarette/Vaping Use Never Used 07/05/24 08:39 PHQ-9: PHQ-9 Score PHQ-9: Total score 0 07/05/24 08:39 Depression Screening Interpretation: Negative Thrive Assessment: Date of Thrive Assessment Date Thrive assessed 07/05/24 07/05/24 08:39 Currently or been in a relationship where the following occur: No concerns reported Const General: healthy appearing, no acute distress, alert and awake Nutritional Appearance: well nourished Orientation/consciousness: oriented to person, oriented to place and oriented to time HENMT Ears: TM's normal bilaterally General nose exam: Normal nasal mucous membranes and turbinates present Eyes Conjunctivae: conjunctivae normal Sclerae: sclerae normal Pupils: Equal, round and reactive pupils present Neck Neck: Yes no lymphadenopathy and Yes no JVD Thyroid: Thyroid normal Carotids: no bruits Resp Effort & Inspection: normal respiratory effort and not tachypneic Auscultation: no crackles, no rales, no rhonchi and no wheezes Cardio Rate: regular rate Rhythm: regular rhythm Heart sounds: no murmurs and normal S1 and S2 GI Palpation (GI): Soft to palpation, nontender, no hepatomegaly and no splenomegaly Auscultation: normal bowel sounds Skin General skin exam: no rashes or lesions noted and dry skin Neuro General: oriented to person, oriented to place and oriented to time Cranial nerves: Yes Equal, round and reactive pupils present Speech: No Abnormal speech present Gait exam (Neuro): Normal gait present Motor exam (neuro): no tremor noted Extrem Other: RIGHT KNEE: WEARING STABILIZING BRACE Right upper extremity: full ROM Left upper extremity: full ROM Right lower extremity: full ROM; no edema Left lower extremity: full ROM; no edema Psych Mental Status: mental status grossly normal Speech and movement: Normal speech and movement present Affect: normal affect Attitude: cooperative Thought process: Normal thought process present Coding Level of Care Code Est Pt Level 4 (71488) Diagnoses Primary hypertension I10 Hypertension type: primary hypertension Closed displaced fracture of right patella, unspecified fracture morphology, sequela S82.001S Encounter type: sequela Fracture type: closed Fracture morphology: unspecified fracture morphology Fracture alignment: displaced Mixed hyperlipidemia E78.2 Hyperlipidemia type: mixed hyperlipidemia Prostate cancer C61 Additional Codes PHQ-9 - 40158 - PHQ-9 Billing: Yes ([id number]) ROOSEVELT-7 Assessment Billing - ROOSEVELT-7 Assessment Tool: ROOSEVELT-7 Assessment 54542 ([id number]) Assessment & Plan Assessment & Plan (1) High blood pressure: Code(s): I10 - Essential (primary) hypertension Category: Medical Qualifiers: Hypertension type: primary hypertension Qualified Code(s): I10 - Essential (primary) hypertension Plan: Patient's blood pressure much improved today in office. He is consistently been using lisinopril with good effect. Does monitor his blood pressure at home and reports 120s to 130 systolic. Blood pressures to remain below 140/90 (2) Right patella fracture: Code(s): S82.001A - Unspecified fracture of right patella, initial encounter for closed fracture Category: Medical Qualifiers: Encounter type: sequela Fracture type: closed Fracture morphology: unspecified fracture morphology Fracture alignment: displaced Qualified C ode(s): S82.001S - Unspecified fracture of right patella, sequela Plan: Continues to follow Orthopedics. Has been found to have a severe laxity in his right knee in his followed up with Orthopedics whom recommends a total knee arthroplasty to resolve the issue. He is waiting on worker's comp to approve procedure/surgery. Does use oxycodone 5 mg on an as needed limited basis for pain scales of 9-10. Otherwise use his NSAID quite regularly. (3) HLD (hyperlipidemia): Code(s): E78.5 - Hyperlipidemia, unspecified Category: Medical Qualifiers: Hyperlipidemia type: mixed hyperlipidemia Qualified Code(s): E78.2 - Mixed hyperlipidemia Plan: Continues with statin therapy. Has been quite awhile since getting fasting labs and promises to do so before upcoming appointment. Goal LDL to be below 130. (4) Prostate cancer: Code(s): C61 - Malignant neoplasm of prostate Category: Medical Plan: Followed by urologist had a total prostectomy and bladder augmentation. Medications: Refilled oxycodone-acetaminophen 5-325 mg (Percocet) Partial Fill upon patient request. 1 tab PO BID 7 days PRN 14 tabs 0RF pain S82.001S - Unspecified fracture of right patella, sequela
== END 2024-07-05 09:30 | disposition home or self-care (01) ==
PROVIDERS: PCP Physician Assistant; Visit Provider Physician Assistant
DX: I10 Essential (primary) hypertension (principal); S82.001S Unspecified fracture of right patella, sequela; E78.2 Mixed hyperlipidemia; C61 Malignant neoplasm of prostate

== ENCOUNTER → 2024-07-05 08:34 | Outpatient (BNVA) | payer OTHER, SELFPAY | PROVIDERS: PCP Physician Assistant; Visit Provider Physician Assistant | DX: I10 Essential (primary) hypertension (principal); M16.0 Bilateral primary osteoarthritis of hip; E66.9 Obesity, unspecified; E78.2 Mixed hyperlipidemia; C61 Malignant neoplasm of prostate; X58.XXXS Exposure to other specified factors, sequela; S82.001S Unspecified fracture of right patella, sequela; Z68.34 Body mass index [BMI] 34.0-34.9, adult | CPT/HCPCS: 96127; 99212 ==

== ENCOUNTER 2024-12-10 15:52 | Outpatient (AMB) | payer MEDICARE, SELFPAY ==
[2024-12-10 16:17] VITALS: BP 150/90; PULSE 90; TEMP 36.3; O2SAT 96; BMI 30.3
--- NOTE | 2024-12-10 16:17 | MHC.PC.OV ---
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 Pt was admitted at [facility] on 11/19 - 12/04 for Physical and Occupational therapy. In 10/2024, he was found Unconscious by his GF - inside his garage after he consumed too much alcohol plus Oxycodone (S/p Knee revision surgery). He was admitted at [facility] where he was intubated due to Aspiration Pneumonia. He was later [facility], where he was placed on ECMO. He was discharged to [facility] after Hospital admission. [facility] Medical History (Updated 12/10/24 @ 17:46 by Maria T Mena NP) Aspiration pneumonia Ilioinguinal neuralgia of left side Osteoarthritis, hip, bilateral Surgical History History of cholecystectomy History of prostate surgery History of hip surgery Hx of right knee surgery History of ankle fusion History of knee replacement procedure of right knee History of arthroscopy of right knee Deficient knowledge of leg surgery Family History Father Advanced cardiac disease Mother Bone cancer Sister Breast cancer Multiple sclerosis Son In good health Daughter In good health Social History Housing: House Alcohol intake: current Alcohol intake frequency: a few times a month Alcohol type: beer Patient Tobacco Use Status: Former Tobacco user Tobacco use type: Cigarette e-Cigarette/Vaping Use: Never Used Second Hand Smoke Exposure: No service: No Current occupational status: employed Current occupational exposures/hazards: No Cognitive needs: No Hearing needs: No Vision needs: Yes Questionnaire PHQ-9 Over the last 2 weeks, how often have you been bothered by any of the following problems? 1. Little interest or pleasure in doing things: not at all 2. Feeling down, depressed, or hopeless: not at all 3. Trouble falling or staying asleep, or sleeping too much: several days 4. Feeling tired or having little energy: not at all 5. Poor appetite or overeating: not at all 6. Feeling bad about yourself - or that you are a failure or have let yourself or your family down: not at all 7. Trouble concentrating on things, such as reading the newspaper or watching television: not at all 8. Moving or speaking so slowly that other people could have noticed. Or the opposite - being so fidgety or restless that you have been moving around a lot more than usual: not at all 9. Thoughts that you would be better off or of hurting yourself in some way: not at all Total score: 1 Source: Developed by Drs. Albert Jamison, Fernanda Silveira, Reese Hall and colleagues, with an educational sean from [employer]. Thrive Questionnaire Date Thrive assessed: 07/05/24 I am a: Patient What is your living situation today?: I have a steady place to live Within the past 12 months, did the food you bought not last and you didn't have the money to get more?: Never true Within the past 12 months, did you worry whether your food would run out before you got money to buy more?: Never true Do you have trouble paying for medicines?: No Do you have trouble getting transportation to medical appointments?: No Do you have trouble paying your heating and electricity bill?: No Do you have trouble taking care of your child, family member or friend?: No Do you have trouble with day-to-day activities such as bathing, preparing meals, shopping, managing finances, etc.?: No Are you currently unemployed and looking for a job?: No Are you interested in more education?: No Please select the resources that you would like help with: None Currently or been in a relationship where the following occur: No concerns reported THRIVE Score: 0 AUDIT C Alcohol Use Questionnaire (AUDIT-C) 1. How often do you have a drink containing alcohol?: Monthly or less 2. How many drinks containing alcohol do you have on a typical day when you are drinking?: 1 or 2 3. How often do you have six or more drinks on one occasion?: Never Total Score: 1 ROOSEVELT-7 AMB Questionnaire ROOSEVELT-7 Date ROOSEVELT - 7 assessed: 07/05/24 Feeling nervous, anxious, or on edge: 0 = Not at all Not being able to stop or control worryin = Not at all Worrying too much about different things: 0 = Not at all Trouble relaxin = Not at all Being so restless that it is hard to sit still: 0 = Not at all Becoming easily annoyed or irritable: 0 = Not at all Feeling afraid as if something awful might happen: 0 = Not at all Total ROOSEVELT-7 score (0-4 normal; 5-9 mild; 10-14 moderate; 15-21 severe): 0 Source: Developed by Drs. Albert Jamison, Fernanda Silveira, Reese Hall and colleagues, with an educational sean from [employer]. Review of Systems Const All systems reviewed & are unremarkable except as noted in HPI and below Physical exam (Primary Care) Vital Signs: Last Vital Signs Temp 97.3 F 12/10/24 16:17 Pulse 90 12/10/24 16:17 BP 150/90 H 12/10/24 16:17 Pulse Ox 96 12/10/24 16:17 Oxygen Delivery Method Room Air 12/10/24 16:17 BMI result Body Mass Index 30.3 Tobacco/Smoking Status: Tobacco use Status Tobacco use date assessed 07/05/24 12/10/24 16:19 Patient Tobacco Use Status Former Tobacco user 12/10/24 16:19 Tobacco use type Cigarette 12/10/24 16:19 e-Cigarette/Vaping Use Never Used 12/10/24 16:19 PHQ-9: PHQ-9 Score PHQ-9: Total score 1 12/10/24 16:19 Thrive Assessment: Date of Thrive Assessment Date Thrive assessed 07/05/24 12/10/24 16:19 Currently or been in a relationship where the following occur: No concerns reported Const General: no acute distress Nutritional Appearance: overweight Orientation/consciousness: patient oriented x3 Resp Effort & Inspection: normal respiratory effort Auscultation: clear to auscultation bilaterally Cardio Heart sounds: S1 normal heart sound present and S2 normal heart sound present Neuro General: patient oriented x3, gait normal (Walks with 2 canes) and moves all extremities Extrem Right lower extremity: knee (Well healed surgical scar left knee) Psych Speech and movement: Normal speech and movement present Coding Level of Care Code Est Pt Level 4 (76152) Diagnoses Aspiration pneumonia, unspecified aspiration pneumonia type, unspecified laterality, unspecified part of lung J69.0 Aspiration pneumonia type: unspecified Laterality: unspecified laterality Lung location: unspecified part of lung Time Spent (min) 20 Assessment & Plan Assessment & Plan (1) Aspiration pneumonia: Code(s): J69.0 - Pneumonitis due to inhalation of food and vomit Category: Medical Qualifiers: Aspiration pneumonia type: unspecified Laterality: unspecified laterality Lung location: unspecified part of lung Qualified Code(s): J69.0 - Pneumonitis due to inhalation of food and vomit Plan: Resolved.
== END 2024-12-10 17:04 | disposition home or self-care (01) ==
LOC: HO.HMCH 15:53
PROVIDERS: PCP Physician Assistant; Visit Provider Nurse Practitioner Family
DX: J69.0 Pneumonitis due to inhalation of food and vomit (principal)

== ENCOUNTER → 2024-12-10 15:52 | Outpatient (BNVA) | payer MEDICARE, SELFPAY | PROVIDERS: PCP Physician Assistant; Visit Provider Nurse Practitioner Family | DX: J69.0 Pneumonitis due to inhalation of food and vomit (principal); Z87.891 Personal history of nicotine dependence | CPT/HCPCS: 99212 ==

== ENCOUNTER → 2024-12-20 23:59 | Outpatient (BNV) | payer MEDICARE, SELFPAY | PROVIDERS: PCP Physician Assistant; Visit Provider Physician Assistant | DX: I11.0 Hypertensive heart disease with heart failure (principal); I50.21 Acute systolic (congestive) heart failure; I25.2 Old myocardial infarction; J69.0 Pneumonitis due to inhalation of food and vomit | CPT/HCPCS: G0180 ==

== ENCOUNTER 2025-01-06 08:53 | Outpatient (AMB) | payer MEDICARE, SELFPAY ==
--- NOTE | 2025-01-06 08:59 | A.OFFPC_ITS ---
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 Required: No Accompanied by: Self / Same As Patient Allergies No Known Allergies Allergy (Verified 01/06/25 09:14) Medication List - Last Reconciled 01/06/25 by Ayden Reid PA-C carvedilol 3.125 mg PO BID celecoxib 200 mg PO BID 90 days gabapentin 800 mg PO Q12H glucosamine HCl 500 mg PO DAILY lisinopril 5 mg PO DAILY 90 days omega-3 fatty acids (Fish Oil Concentrate) 1,000 mg PO BID omeprazole 20 mg PO DAILY oxycodone-acetaminophen 5-325 mg (Percocet) 1 tab PO BID PRN 7 days pravastatin 10 mg PO DAILY Tobacco use date assessed: 01/06/25 Fall risk assessment: 2 + Falls in past year Last assessed Fall Risk: 01/06/25 Dental Screening Dental Screen Date: 01/06/25 Did you have a dental visit in the last 12 months?: Yes Did you have a dental problem in the last 6 months where you did not have access to dental care?: No Was dental information given to patient?: Yes HPI Annual Exam HPI Details Patient is a 64-year-old male here today for a routine annual physical. Patient's past medical history significant for prostate cancer( status post total prostatectomy), hypertension, osteoarthritis bilateral hips, hyperlipidemia and obesity. In 10/2024, he was found Unconscious by his GF - inside his garage after he consumed too much alcohol plus Oxycodone (S/p Knee revision surgery). He was admitted at [facility] where he was intubated due to Aspiration Pneumonia. He was later transferred to MICU @ [facility], where he was placed on ECMO. He was discharged to [place] after Hospital admission. He declines that this was overdose as he has been getting prescribed opiates quite some time for his various pains. He ultimately was found to have had a heart attack and will be set up with a dairy equipment mechanic in near future. He was started on carvedilol, and will be due for cardiac catheterization. .. Depression: Patient's PHQ-9 score positive for mild depression which seems to be getting worse as of late. Has been going through a lot of personal issues and declining health. He is willing to speak with a mental health therapist at this time. Right knee patellar fracture: Continues to follow orthopedics in [place]. Was found to have severe laxity in his right knee be due for full replacement of his right knee.. Otherwise continues with Celebrex. .. CAD: Has upcoming appt with dairy equipment mechanic. Has been started on carvedilol. Hypertension: Patient's blood pressure improved today in office. He has been started on lisinopril 5 mg He does at time check his blood pressure at home reports they have been stable.. He otherwise denies any chest discomfort, shortness of breath, dizziness or headaches. .. Hyperlipidemia: Has not gotten labs in quite some time, continues on daily use of pravastatin 10 mg. Advised to do fasting lipids to evaluate total cholesterol and LDL .. Colon cancer screening: last colon done done 2018- Dr meyer - negative- repeat 10 years Vaccines: Up-to-date with tetanus vaccine, pneumonia vaccine, COVID vaccines, Considering Shingles vaccine. [facility] Medical History Aspiration pneumonia Ilioinguinal neuralgia of left side Osteoarthritis, hip, bilateral Surgical History History of cholecystectomy History of prostate surgery History of hip surgery Hx of right knee surgery History of ankle fusion History of knee replacement procedure of right knee History of arthroscopy of right knee Deficient knowledge of leg surgery Family History Father Advanced cardiac disease Mother Bone cancer Sister Breast cancer Multiple sclerosis Son In good health Daughter In good health Social History Housing: House Alcohol intake: current Alcohol intake frequency: a few times a month Alcohol type: beer Patient Tobacco Use Status: Former Tobacco user Tobacco use type: Cigarette e-Cigarette/Vaping Use: Never Used Second Hand Smoke Exposure: No service: No Current occupational status: employed Current occupational exposures/hazards: No Cognitive needs: No Hearing needs: No Vision needs: Yes Questionnaire PHQ-9 Over the last 2 weeks, how often have you been bothered by any of the following problems? 1. Little interest or pleasure in doing things: several days 2. Feeling down, depressed, or hopeless: several days 3. Trouble falling or staying asleep, or sleeping too much: several days 4. Feeling tired or having little energy: several days 5. Poor appetite or overeating: several days 6. Feeling bad about yourself - or that you are a failure or have let yourself or your family down: not at all 7. Trouble concentrating on things, such as reading the newspaper or watching television: several days 8. Moving or speaking so slowly that other people could have noticed. Or the opposite - being so fidgety or restless that you have been moving around a lot more than usual: not at all 9. Thoughts that you would be better off or of hurting yourself in some way: not at all Total score: 6 Depression Screening Interpretation: Positive Depression Screening Follow-up: Existing condition Depression Screening Done: Yes 85441 - PHQ-9 Billing: Yes Source: Developed by Drs. Albert Jamison, Fernanda Silveira, Reese Hall and colleagues, with an educational sean from [employer]. Thrive Questionnaire Date Thrive assessed: 01/06/25 I am a: Patient What is your living situation today?: I have a steady place to live Within the past 12 months, did the food you bought not last and you didn't have the money to get more?: Never true Within the past 12 months, did you worry whether your food would run out before you got money to buy more?: Never true Do you have trouble paying for medicines?: No Do you have trouble getting transportation to medical appointments?: No Do you have trouble paying your heating and electricity bill?: No Do you have trouble taking care of your child, family member or friend?: No Do you have trouble with day-to-day activities such as bathing, preparing meals, shopping, managing finances, etc.?: No Are you currently unemployed and looking for a job?: No Are you interested in more education?: No Please select the resources that you would like help with: None Currently or been in a relationship where the following occur: No concerns reported THRIVE Score: 0 ROOSEVELT-7 AMB Questionnaire ROOSEVELT-7 Date ROOSEVELT - 7 assessed: 01/06/25 Source: Developed by Drs. Albert Jamison, Fernanda Silveiar, Reese Hall and colleagues, with an educational sean from [employer]. Physical exam (Primary Care) Vital Signs: Last Vital Signs Pulse 96 01/06/25 09:01 BP 150/90 H 01/06/25 09:01 Pulse Ox 96 01/06/25 09:01 Oxygen Delivery Method Room Air 01/06/25 09:01 BMI result Body Mass Index 30.6 Tobacco/Smoking Status: Tobacco use Status Tobacco use date assessed 01/06/25 01/06/25 09:07 Patient Tobacco Use Status Former Tobacco user 01/06/25 08:59 Tobacco use type Cigarette 01/06/25 08:59 e-Cigarette/Vaping Use Never Used 01/06/25 08:59 PHQ-9: PHQ-9 Score PHQ-9: Total score 6 01/06/25 09:14 Depression Screening Interpretation: Positive Depression Screening Follow-up: Existing condition Thrive Assessment: Date of Thrive Assessment Date Thrive assessed 01/06/25 01/06/25 09:14 Currently or been in a relationship where the following occur: No concerns reported Coding Diagnoses Annual physical exam Z00.00 Primary hypertension I10 Hypertension type: primary hypertension Closed displaced fracture of right patella, unspecified fracture morphology, sequela S82.001S Encounter type: sequela Fracture type: closed Fracture morphology: unspecified fracture morphology Fracture alignment: displaced Mixed hyperlipidemia E78.2 Hyperlipidemia type: mixed hyperlipidemia Prostate cancer C61 Coronary artery disease involving ven[place]ie ira coronary artery of ven[place] heart without angina pectoris I25.10 Coronary Disease-Associated Artery/Lesion type: ven[place] ira artery [place] vs. transplanted heart: ven[place] heart Associated angina: without angina MDD (major depressive disorder), recurrent episode, mild F33.0 Hypokalemia E87.6 Additional Codes PHQ-9 - 45450 - PHQ-9 Billing: Yes ([id number]) Assessment & Plan Assessment & Plan (1) Annual physical exam: Code(s): Z00.00 - Encounter for general adult medical examination without abnormal findings Category: Medical Plan: As per HPI (2) High blood pressure: Code(s): I10 - Essential (primary) hypertension Category: Medical Qualifiers: Hypertension type: primary hypertension Qualified Code(s): I10 - Essential (primary) hypertension Plan: Patient's blood pressure much improved today in office. He is consistently been using lisinopril with good effect, has been started on carvedilol since his recent hospitalization for acute illness and was determined that he may have had heart attack. Does monitor his blood pressure at home and reports 120s to 130 systolic. Blood pressures to remain below 140/90 (3) Right patella fracture: Code(s): S82.001A - Unspecified fracture of right patella, initial encounter for closed fracture Category: Medical Qualifiers: Encounter type: sequela Fracture type: closed Fracture morphology: unspecified fracture morphology Fracture alignment: displaced Qualified Code(s): S82.001S - Unspecified fracture of right patella, sequela Plan: Continues to follow Orthopedics. Has been found to have a severe laxity in his right knee in his followed up with Orthopedics whom recommends a total knee arthroplasty to resolve the issue. He is waiting on worker's comp to approve procedure/surgery. Does use oxycodone 5 mg on an as needed limited basis for pain scales of 9-10. Otherwise use his NSAID quite regularly. (4) HLD (hyperlipidemia): Code(s): E78.5 - Hyperlipidemia, unspecified Category: Social Hx Qualifiers: Hyperlipidemia type: mixed hyperlipidemia Qualified Code(s): E78.2 - Mixed hyperlipidemia Plan: Continues with statin therapy. Has been quite awhile since getting fasting labs and promises to do so before upcoming appointment. Goal LDL would to be optimally below 70 due to new findings of cardiovascular disease (5) Prostate cancer: Code(s): C61 - Malignant neoplasm of prostate Category: Medical Plan: Followed by urologist had a total prostectomy and bladder augmentation. (6) CAD (coronary artery disease): Code(s): I25.10 - Atherosclerotic heart disease of [place] coronary artery without angina pectoris Category: Medical Qualifiers: Coronary Disease-Associated Artery/Lesion type: [place] artery [place] vs. transplanted heart: [place] heart Associated angina: without angina Qualified Code(s): I25.10 - Atherosclerotic heart disease of [place] coronary artery without angina pectoris Plan: Has a above patient started on carvedilol at his recent hospitalization, is due to follow up with Cardiology at [facility] and is anticipating a cardiac catheterization. (7) MDD (major depressive disorder), recurrent episode, mild: Code(s): F33.0 - Major depressive disorder, recurrent, mild Category: Medical Plan: Patient's PHQ-9 score positive for mild depression which has been getting worse due to personal issues and is declining physical health. He is willing to speak with a mental health therapist (8) Hypokalemia: Code(s): E87.6 - Hypokalemia Category: Medical Plan: Patient was found to be hypokalemic during his recent hospitalization. He was started on potassium supplementation pills Orders: Orders Lipid Panel Today I25.10 - Atherosclerotic heart disease of [place] coronary artery without angina pectoris Comprehensive Calvin. Panel Fast Today I25.10 - Atherosclerotic heart disease of [place] coronary artery without angina pectoris Complete Blood Count no Diff Today I25.10 - Atherosclerotic heart disease of [place] coronary artery without angina pectoris Prostate Specific Antigen Scr Today I25.10 - Atherosclerotic heart disease of [place] coronary artery without angina pectoris, Z12.5 - Encounter for screening for malignant neoplasm of prostate Referrals Counseling Referral F33.0 - Major depressive disorder, recurrent, mild, Z13.220 - Encounter for screening for lipoid disorders Medications: Refilled pravastatin 10 mg PO DAILY 90 tabs 1RF lisinopril 5 mg PO DAILY 90 tabs 1RF 90 days I10 - Essential (primary) hyper tension omeprazole 20 mg PO DAILY 90 caps 1RF gabapentin 800 mg PO Q12H 180 tabs 2RF celecoxib 200 mg PO BID 180 caps 1RF 90 days M16.0 - Bilateral primary osteoarthritis of hip oxycodone-acetaminophen 5-325 mg (Percocet) Partial Fill upon patient request. 1 tab PO BID PRN 14 tabs 0RF pain 7 days S82.001S - Unspecified fracture of right patella, sequela
[2025-01-06 09:01] VITALS: BP 150/90; PULSE 96; O2SAT 96; BMI 30.6
--- OUTSIDE RECORDS SUMMARY | 2025-01-06 09:13 | XMS_ITS ---
Author Name [facility] Organization Unknown History of Medication Use Medication Directions Dispensed Refills Start Date End Date [facility] tadalafil 5 mg tablet TAKE 1 TABLET BY MOUTH EVERY MORNING active Encounters Encounter Type Encounter Reason Primary Diagnosis Location Date Ambulatory [facility] 10/03/2023 Ambulatory [facility] [place] 10/03/2023 Ambulatory [facility] [place] 10/03/2023 Ambulatory [facility] [place] 10/03/2023 Ambulatory [facility] [place] 09/01/2023
--- OUTSIDE RECORDS SUMMARY | 2025-01-06 09:13 | XMS_ITS | Data Portability ---
Author Organization [place] [facility] Address [address] [place] [address] Assessment No assessment recorded. Plan of Treatment Reminders Order Date Submit Date Provider Last Modified By Organization Details Last Modified Time Details Appointments None record ed. Lab None record ed. Referral None record ed. Procedures None record ed. Surgeries None record ed. Imaging None record ed. Medication Orders None record ed. Patient TargetsNo targets recorded. Patient InstructionsNo instructions recorded. Reason for Referral None Reported. Procedures Surgical History Date Name Laterality Status Provider Name and Address Organization Details Recorded Time 10/03/2023 FLAVIA completed Arminda Buenrostro [facility], 10/03/2023 15:56:49 Imaging Results None recorded. Procedure Notes None recorded. Medical Equipment None Reported. Medications Name Sig Start Date Stop Date Status Note LastModified by Organization Details LastModified Time celecoxib 200 mg capsule TAKE 1 CAPSULE BY MOUTH TWICE A DAY active Not Available Not Available No t Available tramadol 50 mg tablet PLEASE SEE ATTACHED FOR DETAILED DIRECTIONS active Not Available Not Available N ot Available pravastatin 10 mg tablet TAKE 1 TABLET BY MOUTH EVERY DAY active Not Available Not Available No t Available gabapentin 800 mg tablet TAKE 1 TABLET BY MOUTH EVERY 12 HOURS active Not Available Not Available No t Available omeprazole 20 mg capsule,nilda yed release TAKE 1 CAPSULE BY MOUTH EVERY DAY active Not Available Not Available No t Available tadalafil 5 mg tablet TAKE 1 TABLET BY MOUTH EVERY MORNING active Not Available Not Available No t Available Vitals None Recorded Social History None recorded. Functional Status None recorded. Mental Status None recorded. Family History Nothing Reported. Medical History No medical history recorded. Past Encounters Encounter ID Performer Location Encounter Start Date Encounter Closed Date Diagnosis/Indication Diagnosis SNOMED-CT Code Diagnosis ICD10 Code Diagnosis Note [id number] MD MARC Edmond [address] [place] [address] 10/03/2023 15:28:11 10/03/2023 16:27:43 Disability evaluation procedure [id number] Z02.71 Health Concerns Section Related Observation LastModified by Organization Detai ls LastModified Time None Recorded Concern Status LastModified by Organization Details LastModified Time None Recorded Advance Directives Directive None Recorded Payers Insurance Date Sequence Insurance Name Policy Number Policy Valadez Covered Member ID Valadez Member ID Guarantor Name 10/14/2023 1 *SELF PAY* Other Mariposa Paz 10/14/2023 CMME (FLAVIA) Max Paz [id number] Max Paz Notes Date Note Type Note Provider Name and Address Organization Details Recorded Time 10/03/2023 text/html FLAVIA performed Pillo Watkins MD [address], [place], [address], [place] [facility], 10/03/2023 16:42:24
--- NOTE | 2025-01-06 09:47 | A.OFFVIS_ITS ---
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 Patient's past medical history significant for prostate cancer( status post total prostatectomy), hypertension, osteoarthritis bilateral hips, hyperlipidemia and obesity. Patient was admitted to [facility] ICU in October for would seem to be an acute passing out episode. Was thought to be due to a mixture of alcohol and opiates at the time though was later found to have probable coronary artery disease and may have had heart attack. He reports he was in a coma for several days and partially paralyzed, was on ECMO during that time. He was started on carvedilol and now has cardiology follow-up. There is considerations due to cardiac catheterization. Right knee patellar fracture: Continues to follow orthopedics in [place]. Was found to have severe laxity in his right knee be due for full replacement of his right knee.. Does use oxycodone 5 mg as needed for pain scales 8-10. Otherwise continues with Celebrex Hypertension: Patient's blood pressure improved today in office. He has been started on lisinopril 5 mg He does at time check his blood pressure at home reports they have been stable.. He otherwise denies any chest discomfort, shortness of breath, dizziness or headaches. .. Hyperlipidemia: Has not gotten labs in quite some time, continues on daily use of pravastatin 10 mg. Advised to do fasting lipids to evaluate total cholesterol and LDL HPI Comments History of Present Illness Details reviewed past medical history- yes reviewed surgical / hospitalization history- yes reviewed current medications- yes reviewed family history- yes home safety throw rugs? grab bars? raised toilet seat? working smoke detectors? activities of daily living difficulty bathing or showering? difficulty dressing? difficulty using the toilet? difficulty getting in and out of bed? difficulty walking? receives help from other person's with any of the above tasks? instrumental activities of daily living uses telephone - gets to place out of walking distance- go shopping for groceries- repairs own meals- does own minor home maintenance- does own laundry- does own housework- manages own money- currently takes medication- end of life planning discussed advanced directives- yes advanced directives on file? discussed wishes expressed in advanced directives. fall risk have you had any falls with injuries in the past year? have you had 2 or more falls in the past year? fall risk assessment: [facility] Medical History Aspiration pneumonia Ilioinguinal neuralgia of left side Osteoarthritis, hip, bilateral Surgical History History of cholecystectomy History of prostate surgery History of hip surgery Hx of right knee surgery History of ankle fusion History of knee replacement procedure of right knee History of arthroscopy of right knee Deficient knowledge of leg surgery Family History Father Advanced cardiac disease Mother Bone cancer Sister Breast cancer Multiple sclerosis Son In good health Daughter In good health Social History Housing: House Alcohol intake: current Alcohol intake frequency: a few times a month Alcohol type: beer Patient Tobacco Use Status: Former Tobacco user Tobacco use type: Cigarette e-Cigarette/Vaping Use: Never Used Second Hand Smoke Exposure: No service: No Current occupational status: employed Current occupational exposures/hazards: No Cognitive needs: No Hearing needs: No Vision needs: Yes Questionnaire Mini Mental State Exam (MMSE) Orientation What is the (year) (season) (date) (day) (month)?: year Where are we (state) (county) (town or city) (hospital) (floor)?: town or city Attention & Calculation (CHOOSE ONE) Spell WORLD backwards (DLROW): 5 letters Score Score: 7 Activity of Daily Living Bathing - sponge bath, tub bath or shower: receives help in bathing only one body part (such as back or leg) Dressing - getting clothes from closets & drawers, including inner/outer garments & fasteners.: gets clothes & gets completely dressed without help Toileting - going to the 'toilet room' for urine/bowel elimination & cleaning self/arranging clothes: goes to toilet room, cleans self, arranges clothes without help Transfer: moves in & out of bed and chair without help (may use support object) Continence: controls urination/bowel movements completely by self Feeding: feeds self without help Total Score: 0 Information obtained from: patient Using telephone: independent Traveling: independent Shopping: needs assistance Preparing meals: independent Housework: needs assistance Taking medicine: independent Managing money: independent Review of Systems Const Denies body aches, Denies chills, Denies excessive sweating, Denies fatigue, Denies fever(s) and Denies headache(s) Eyes Denies blurry vision ENT Denies dysphagia, Denies vertigo, Denies dizziness, Denies headache(s), Denies hearing loss and Denies tinnitus Card Denies chest pain, Denies chest pain with activity, Denies syncope, Denies irregular heart rhythm and Denies dyspnea Resp Denies chest congestion, Denies cough, Denies hemoptysis, Denies dyspnea and Denies wheezing GI Denies abdominal pain, Denies melena, Denies hematochezia, Denies coffee ground emesis, Denies dysphagia, Denies diarrhea, Denies nausea and Denies vomiting Denies difficulty urinating, Denies dysuria, Denies urinary frequency, Denies urinary hesitancy and Denies urinary urgency Musc Denies arthralgias, Denies limited range of motion, Denies muscle cramps and Denies muscle weakness Skin/Breast Denies rash and Denies skin ulcer Neuro Denies Abnormal speech present, Denies confusion, Denies vertigo, Denies dizziness, Denies syncope, Denies headache(s), Denies memory loss and Denies seizure-like activity Psych Denies anxiety, Denies confusion, Denies depression, Denies memory loss, Denies panic attacks and Denies paranoia Endo Denies excessive sweating, Denies fatigue, Denies flushing, Denies polydipsia and Denies polyuria Aller/Immun Denies wheezing Physical Exam Vital Signs: Last Vital Signs Pulse 96 01/06/25 09:01 BP 150/90 H 01/06/25 09:01 Pulse Ox 96 01/06/25 09:01 Oxygen Delivery Method Room Air 01/06/25 09:01 BMI result Body Mass Index 30.6 Const General: cooperative, comfortable, no acute distress, alert and awake; No confusion Orientation/consciousness: oriented to person, oriented to place, patient oriented x3 and No confusion HEENT Other: hearing screening whisper test- Head: Yes normocephalic Ears: external ears normal and TM's normal bilaterally Face and sinus: No sinus tenderness Mouth: Normal oral and palatal mucosa present and tongue normal Teeth and gingiva: dentition normal and gingiva normal Throat: Yes posterior oropharynx normal, Yes tonsils normal and Yes uvula midline Eyes Other: vision screening- 20 20 OS OD OU Conjunctivae: conjunctivae normal Sclerae: sclerae normal Pupils: Equal, round and reactive pupils present EOM: EOMs intact bilaterally Direct Ophthalmoscopy: No no photophobia Neck Neck: Yes no lymphadenopathy, No tender and Yes no JVD Thyroid: Thyroid normal Carotids: no bruits Chest Chest palpation & inspection: no tenderness Resp Effort & Inspection: normal respiratory effort, no audible wheezes, not labored and no stridor Auscultation: no crackles, no rales, no rhonchi and no wheezes Cardio Jugular venous distension: no JVD Rate: regular rate, not bradycardic and not tachycardic Rhythm: regular rhythm Bruits: no carotid bruits Peripheral pulses: Peripheral pulses 2+ throughout GI Inspection: Yes normal to inspection, No abdominal wall ecchymosis and No visible herniation Palpation (GI): Soft to palpation, nontender, no guarding, not rigid and No hepatosplenomegaly present Auscultation: normoactive bowel sounds Other: urinary incontinence? no General: Yes no CVA tenderness Back/Spine/Pelvis Back: no CVA tenderness and No back tenderness Cervical Spine: cervical ROM normal Thoracic/Lumbar Spine: thoracic and lumbar spine normal to inspection, straight leg raise negative bilaterally, No thoraco-lumbar ROM limited and No lumbar spinal tenderness Skin Lesions: no lesions Rashes: no rashes Wounds: no wounds Neuro Other: balance Romberg- normal tandem walk test- able walk-in turned test- able rise from sit to stand- within 5 seconds General: oriented to person, oriented to place, patient oriented x3, CN's II-XI intact bilaterally and No confusion Cranial nerves: Yes Equal, round and reactive pupils present and Yes Normal accommodation reflex present Cognition (Neuro): normal cognition Speech: No Abnormal speech present Gait exam (Neuro): Normal gait present Motor exam (neuro): 5/5 motor strength present throughout Extrem Right upper extremity: full ROM; no cyanosis Left upper extremity: full ROM; no cyanosis Right lower extremity: no edema Left lower extremity: no edema Psych Appearance: grossly normal Mental Status: mental status grossly normal Affect: normal affect Attitude: cooperative Thought process: Normal thought process present Assessment & Plan Assessment & Plan (1) Annual physical exam: Code(s): Z00.00 - Encounter for general adult medical examination without abnormal findings Plan: As per HPI (2) High blood pressure: Code(s): I10 - Essential (primary) hypertension Qualifiers: Hypertension type: primary hypertension Qualified Code(s): I10 - Essential (primary) hypertension Plan: Patient's blood pressure elevated. He was recently started on carvedilol. 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 He does use low-dose oxycodone 5 mg an as needed basis for pain scales of 9-10. Otherwise has gabapentin and Celebrex as his mainstay of pain treatment. (4) HLD (hyperlipidemia): Code(s): E78.5 - Hyperlipidemia, unspecified Qualifiers: Hyperlipidemia type: mixed hyperlipidemia Qualified Code(s): E78.2 - Mixed hyperlipidemia Plan: Patient continues on statin therapy. Has yet to get fasting labs willing to do so now. Goal LDL to preferably be below 100 optimally below 70 due to concerns of coronary artery disease (5) Prostate cancer: Code(s): C61 - Malignant neoplasm of prostate Plan: Patient has a history prostate cancer in his status post prostatectomy also has had bladder augmentation surgery secondary .. (6) CAD (coronary artery disease): Code(s): I25.10 - Atherosclerotic heart disease of [place] coronary artery without angina pectoris Qualifiers: Associated angina: without angina Coronary Disease-Associated Artery/Lesion type: [place] artery [place] vs. transplanted heart: [place] heart Qualified Code(s): I25.10 - Atherosclerotic heart disease of [place] coronary artery without angina pectoris Plan: Patient's recent hospitalization noted have had a myocardial infarction. Has been started on carvedilol and has outpatient cardiology appointment at [facility]. They are considering cardiac catheterization to evaluate for coronary artery disease. (7) MDD (major depressive disorder), recurrent episode, mild: Code(s): F33.0 - Major depressive disorder, recurrent, mild Plan: Patient has been suffering with more depression due to his failing physical health and personal problems at home. He is not interested in starting new medication though was willing to see a mental health therapist (8) Hypokalemia: Code(s): E87.6 - Hypokalemia Plan: Was found to be hypokalemic during his hospital stay and was started on potassium supplementation pills. Orders: Orders Lipid Panel Today I25.10 - Atherosclerotic heart disease of [place] coronary artery without angina pectoris Comprehensive [place]. Panel Fast Today I25.10 - Atherosclerotic heart disease of [place] coronary artery without angina pectoris Complete Blood Count no Diff Today I25.10 - Atherosclerotic heart disease of [place] coronary artery without angina pectoris Prostate Specific Antigen Scr Today I25.10 - Atherosclerotic heart disease of [place] coronary artery without angina pectoris, Z12.5 - Encounter for screening for malignant neoplasm of prostate Referrals Counseling Referral F33.0 - Major depressive disorder, recurrent, mild, Z13.220 - Encounter for screening for lipoid disorders Medications: Refilled pravastatin 10 mg PO DAILY 90 tabs 1RF lisinopril 5 mg PO DAILY 90 tabs 1RF 90 days I10 - Essential (primary) hypertension omeprazole 20 mg PO DAILY 90 caps 1RF gabapentin 800 mg PO Q12H 180 tabs 2RF celecoxib 200 mg PO BID 180 caps 1RF 90 days M16.0 - Bilateral primary osteoarthritis of hip oxycodone-acetaminophen 5-325 mg (Percocet) Partial Fill upon patient request. 1 tab PO BID PRN 14 tabs 0RF pain 7 days S82.001S - Unspecified fracture of right patella, sequela Coding Level of Care Code Medicare First (G0438) Est Pt Level 4 (56728) Diagnoses Annual physical exam Z00.00 Primary hypertension I10 Hypertension type: primary hypertension Closed displaced fracture of right patella, unspecified fracture morphology, sequela S82.001S Encounter type: sequela Fracture alignment: displaced Fracture morphology: unspecified fracture morphology Fracture type: closed Mixed hyperlipidemia E78.2 Hyperlipidemia type: mixed hyperlipidemia Prostate cancer C61 Coronary artery disease involving [place] coronary artery of [place] heart without angina pectoris I25.10 Associated angina: without angina Coronary Disease-Associated Artery/Lesion type: [place] artery [place] vs. transplanted heart: [place] heart MDD (major depressive disorder), recurrent episode, mild F33.0 Hypokalemia E87.6
== END 2025-01-06 09:52 | disposition home or self-care (01) ==
LOC: HO.HMCH 08:54
PROVIDERS: PCP Physician Assistant; Visit Provider Physician Assistant
DX: Z00.00 Encounter for general adult medical examination without abnormal findings (principal); C61 Malignant neoplasm of prostate; I10 Essential (primary) hypertension; S82.001S Unspecified fracture of right patella, sequela; E78.2 Mixed hyperlipidemia; I25.10 Atherosclerotic heart disease of native coronary artery without angina pectoris; F33.0 Major depressive disorder, recurrent, mild; E87.6 Hypokalemia

== ENCOUNTER → 2025-01-06 08:53 | Outpatient (BNVA) | payer MEDICARE, SELFPAY | PROVIDERS: PCP Physician Assistant; Visit Provider Physician Assistant | DX: Z00.00 Encounter for general adult medical examination without abnormal findings (principal); I10 Essential (primary) hypertension; S82.001S Unspecified fracture of right patella, sequela; E78.2 Mixed hyperlipidemia; C61 Malignant neoplasm of prostate; I25.10 Atherosclerotic heart disease of native coronary artery without angina pectoris; F33.0 Major depressive disorder, recurrent, mild; E87.6 Hypokalemia; Z87.891 Personal history of nicotine dependence | CPT/HCPCS: 99212 ==

== ENCOUNTER 2025-04-25 15:35 | Outpatient (AMB) | payer MEDICARE, SELFPAY ==
--- NOTE | 2025-04-25 15:58 | A.OFFPC_ITS ---
Vital Signs 04/25/25 15:59 Height 5 ft 11 in Weight 234 lb 2 oz BMI 32.7 BP 160/82 H Blood Pressure Location Lt brachial Position Sitting Pulse 64 Pulse Source Pulse Oximeter Temp 97.5 F Temp Source Temporal Artery Scan Pulse Oximetry (%) 97 Oxygen Delivery Method Room Air Intake Visit Reasons: Reschedule f/u CAD/ HTN Intake Note: Patient is here to follow up on CAD, HTN. 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 Accompanied by: Spouse Allergies No Known Allergies Allergy (Verified 04/25/25 16:17) Medication List - Last Reconciled 04/25/25 by Ayden Reid PA-C amlodipine 2.5 mg PO DAILY aspirin 81 mg PO DAILY atorvastatin 80 mg PO BEDTIME carvedilol 3.125 mg PO BID celecoxib 200 mg PO BID 90 days gabapentin mg PO gabapentin 800 mg PO Q12H glucosamine HCl 500 mg PO DAILY lisinopril 15 mg PO DAILY omega-3 fatty acids (Fish Oil Concentrate) 1,000 mg PO BID omeprazole 20 mg PO DAILY oxycodone-acetaminophen 5-325 mg (Percocet) 1 tab PO BID PRN 7 days Tobacco use date assessed: 04/25/25 Fall risk assessment: No Falls in past year Last assessed Fall Risk: 04/25/25 Dental Screening Dental Screen Date: 07/05/24 HPI Reschedule f/u CAD/ HTN HPI Details Patient is a 64-year-old male here today for a follow up visit Patient's past medical history significant for prostate cancer( status post total prostatectomy), hypertension, osteoarthritis bilateral hips, hyperlipidemia and obesity. Coronary artery disease: Patient recently underwent myocardial perfusion stress test showing evidence of a fixed defect on the inferior wall suggestive of a prior myocardial infarction. Also there was a small apical reversible defect. Findings suggestive of multivessel coronary artery disease/. Patient has been started on multiple medications including aspirin, carvedilol, 15 mg of lisinopril and high dose statin therapy with atorvastatin 80 mg. He will be following up with Cardiology on discussion of possible coronary artery bypass versus stents. Right knee patellar fracture: Continues to follow orthopedics in [place]. Unfortunately continues to have pain in the right knee which does not allow him to walk far distances for even work at this time. He is currently on worker's comp Does use oxycodone 5 mg as needed for pain scales 8-10. Otherwise continues with Celebrex Hypertension: Patient's blood pressure elevated today in office. He has been started on lisinopril 5 mg He does at time check his blood pressure at home reports they have been stable.. He otherwise denies any chest discomfort, shortness of breath, dizziness or headaches. FOR[facility], [facility] Medical History Aspiration pneumonia Ilioinguinal neuralgia of left side Osteoarthritis, hip, bilateral Surgical History History of cholecystectomy History of prostate surgery History of hip surgery Hx of right knee surgery History of ankle fusion History of knee replacement procedure of right knee History of arthroscopy of right knee Deficient knowledge of leg surgery Family History Father Advanced cardiac disease Mother Bone cancer Sister Breast cancer Multiple sclerosis Son In good health Daughter In good health Social History Housing: House Alcohol intake: current Alcohol intake frequency: a few times a month Alcohol type: beer Patient Tobacco Use Status: Former Tobacco user Tobacco use type: Cigarette e-Cigarette/Vaping Use: Never Used Second Hand Smoke Exposure: Yes service: No Current occupational status: employed Current occupational exposures/hazards: No Cognitive needs: Yes (Cane) Hearing needs: No Vision needs: Yes (Glasses) Questionnaire Thrive Questionnaire Date Thrive assessed: 07/05/24 I am a: Patient What is your living situation today?: I have a steady place to live Within the past 12 months, did the food you bought not last and you didn't have the money to get more?: Never true Within the past 12 months, did you worry whether your food would run out before you got money to buy more?: Never true Do you have trouble paying for medicines?: No Do you have trouble getting transportation to medical appointments?: No Do you have trouble paying your heating and electricity bill?: No Do you have trouble taking care of your child, family member or friend?: No Do you have trouble with day-to-day activities such as bathing, preparing meals, shopping, managing finances, etc.?: No Are you currently unemployed and looking for a job?: No Are you interested in more education?: No Please select the resources that you would like help with: None Currently or been in a relationship where the following occur: No concerns reported THRIVE Score: 0 [place]EL[place]-7 AMB Questionnaire R[place]EL[place]-7 Date ROOSE[place]ELT - 7 assessed: 07/05/24 Source: Developed by Drs. Albert Jamison, Fernanda Silveira, Reese Hall and colleagues, with an educational sean from [employer]. Physical exam (Primary Care) Vital Signs: Last Vital Signs Temp 97.5 F 04/25/25 15:59 Pulse 64 04/25/25 15:59 BP 160/82 H 04/25/25 15:59 Pulse Ox 97 04/25/25 15:59 Oxygen Delivery Method Room Air 04/25/25 15:59 BMI result Body Mass Index 32.7 Tobacco/Smoking Status: Tobacco use Status Tobacco use date assessed 04/25/25 04/25/25 16:07 Patient Tobacco Use Status Former Tobacco user 04/25/25 16:07 Tobacco use type Cigarette 04/25/25 16:07 e-Cigarette/Vaping Use Never Used 04/25/25 16:07 Thrive Assessment: Date of Thrive Assessment Date Thrive assessed 07/05/24 04/25/25 16:07 Currently or been in a relationship where the following occur: No concerns reported Office Procedures Flu Questionnaire Does the patient have a severe egg allergy?: No Does the patient have severe life threatening allergies?: No Does the patient have a fever or illness today?: No Has the patient ever had [place] Syndrome?: No Has the patient ever had any past reaction to a flu shot?: No Immunizations Fluarix [id number] (PF) 45 mcg (15 mcg x 3)/0.5 mL IM syringe Performing Provider: Ayden Reid PA-C [facility] Administered by: Joceline Harris CMA on 04/25/25 17:01 Dose Route Admin Location Dispensed Lot Number Expiration Date [facility] Bread Dumper 0.5 mL IM Left Deltoid 0.5 mL [id number] 12/27/25 82748-709-29 [employer]INE VIS Given Date VIS Provided VIS Publication Date 04/25/25 Single Vaccine 24 Eligibility Eligibility Date Funding Source Not [facility] Eligible 04/25/25 Private Coding Level of Care Code Est Pt Level 4 (20551) Diagnoses Coronary artery disease involving [place] coronary artery of [place] heart without angina pectoris I25.10 Associated angina: without angina Coronary Disease-Associated Artery/Lesion type: [place] artery [place] vs. transplanted heart: [place] heart MDD (major depressive disorder), recurrent episode, mild F33.0 Prostate cancer C61 Closed displaced fracture of right patella, unspecified fracture morphology, sequela S82.001S Encounter type: sequela Fracture alignment: displaced Fracture morphology: unspecified fracture morphology Fracture type: closed Primary hypertension I10 Hypertension type: primary hypertension Assessment & Plan Assessment & Plan (1) CAD (coronary artery disease): Code(s): I25.10 - Atherosclerotic heart disease of [place] coronary artery without angina pectoris Category: Medical Qualifiers: Associated angina: without angina Coronary Disease-Associated Artery/Lesion type: [place] artery [place] vs. 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 This includes continuing amlodipine 10 mg, lisinopril 10 mg, atorvastatin 80 mg, aspirin, and carvedilol. Pravastatin will be noted as discontinued in his chart. Optimal LDL to be below 70. (2) MDD (major depressive disorder), recurrent episode, mild: Code(s): F33.0 - Major depressive disorder, recurrent, mild Category: Medical Plan: Patient has been suffering with more depression due to his failing physical health and personal problems at home. He is not interested in starting new medication though was willing to see a mental health therapist (3) Prostate cancer: Code(s): C61 - Malignant neoplasm of prostate Category: Medical Plan: Patient has a history prostate cancer in his status post prostatectomy also has had bladder augmentation surgery secondary. (4) Right patella fracture: Code(s): S82.001A - Unspecified fracture of right patella, initial encounter for closed fracture Category: Medical Qualifiers: Encounter type: sequela Fracture alignment: displaced Fracture morphology: unspecified fracture morphology Fracture type: closed Qualified Code(s): S82.001S - Unspecified fracture of right patella, sequela Plan: Patient continues to follow Orthopedics at new [facility]. He does use low-dose oxycodone 5 mg an as needed basis for pain scales of 9-10. Otherwise has gabapentin and Celebrex as his mainstay of pain treatment. (5) High blood pressure: Code(s): I10 - Essential (primary) hypertension Category: Medical Qualifiers: Hypertension type: primary hypertension Qualified Code(s): I10 - Essential (primary) hypertension Plan: Patient's blood pressure elevated today in office. Currently under lot of stress due to medical conditions and current knee pain. He has been started on multiple antihypertensives including beta-nicolette, JO ANN inhibitor and amlodipine. Advised to monitor blood pressure at home with goal blood pressure to be below 130/80 Orders: Orders Influenza [id number] Immunization 04/25/25 Z23 - Encounter for immunization Medications: Refilled oxycodone-acetaminophen 5-325 mg (Percocet) Partial Fill upon patient request. 1 tab PO BID PRN 14 tabs 0RF pain 7 days S82.001S - Unspecified fracture of right patella, sequela
[2025-04-25 15:59] VITALS: BP 160/82; PULSE 64; TEMP 36.4; O2SAT 97; BMI 32.7
--- OUTSIDE RECORDS SUMMARY | 2025-04-25 18:41 | XMS_ITS | Data Portability ---
Author Organization [place] [facility] Address [address] [place] [address] Assessment No assessment recorded. Plan of Treatment [...] completed Arminda Buenrostro [facility], 10/03/2023 15:56:49 Imaging Results None recorded. Procedure [...] Diagnosis SNOMED-CT Code Diagnosis ICD10 Code Diagnosis IMO Codes Diagnosis Note [id number] MD MARC Edmond [address] [place] [address] 10/03/2023 15:28:11 10/03/2023 16:27:43 Disability evaluation procedure [id number] Z02.71 Health Concerns Section Related Observation LastModified by Organization Detai ls LastModified Time None Recorded Concern Status LastModified by Organization Details LastModified Time None Recorded Advance Directives Directive None Recorded Payers Insurance Date Sequence Insurance Name Policy Number Policy Valadez Covered Member ID Valadez Member ID Guarantor Name 10/14/2023 1 *SELF PAY* Other Mariposa Paz 10/14/2023 CMME (FLAVIA) Max Paz [id number] Max Paz Notes Date Note Type Note Provider Name and Address Organization Details Recorded Time 10/03/2023 text/html FLAVIA performed Pillo Watkins MD [address], [place], [address], [place] [facility], 10/03/2023 16:42:24
== END 2025-04-25 17:06 | disposition home or self-care (01) ==
LOC: HO.HMCH 15:36
PROVIDERS: PCP Physician Assistant; Visit Provider Physician Assistant
DX: I25.10 Atherosclerotic heart disease of native coronary artery without angina pectoris (principal); F33.0 Major depressive disorder, recurrent, mild; C61 Malignant neoplasm of prostate; S82.001S Unspecified fracture of right patella, sequela; I10 Essential (primary) hypertension

== ENCOUNTER → 2025-04-25 15:35 | Outpatient (BNVA) | payer MEDICARE, SELFPAY | PROVIDERS: PCP Physician Assistant; Visit Provider Physician Assistant | DX: I10 Essential (primary) hypertension (principal); I25.10 Atherosclerotic heart disease of native coronary artery without angina pectoris; F33.0 Major depressive disorder, recurrent, mild; S82.001S Unspecified fracture of right patella, sequela; C61 Malignant neoplasm of prostate; Z23 Encounter for immunization | CPT/HCPCS: 90471; 90656; 99212 ==